=== PATIENT | male | born 1930 | race Caucasian/White ===

== ENCOUNTER 2018-12-27 07:12 | Inpatient (IN) | payer MEDICARE, OTHER ==
[~2018-12-27] VITALS: Ht 185.4 cm; Wt 86.8 kg
[2018-12-27] MEDS ORDERED: ALBUTEROL 0.083% (NEB) 2.5 MG/3 ML AMP HHN STA (07:24)
[2018-12-27] MEDS ORDERED: METF500T3 PO (08:30)
[2018-12-27] MEDS ORDERED: SIMV10TA PO (08:30)
[2018-12-27] MEDS ORDERED: MULT-843 PO (08:30)
[2018-12-27] MEDS ORDERED: LOSA50TA14 PO (08:30)
[2018-12-27] MEDS ORDERED: OMEG-158 PO (08:30)
[2018-12-27] MEDS ORDERED: SITA100T11 PO (08:30)
[2018-12-27] MEDS ORDERED: METO-319 PO (08:30)
[2018-12-27] MEDS ORDERED: ASPI1CPM6 ORAL (08:30)
[2018-12-27] MEDS ORDERED: LATA2.5D2 BOTH EYES (08:30)
[2018-12-27] MEDS ORDERED: GLIP10TA14 PO (08:30)
[2018-12-27] MEDS ORDERED: FINA5TAB4 PO (08:30)
[2018-12-27] MEDS ORDERED: DEXT1DRO12 OP (08:30)
[2018-12-27] MEDS ORDERED: CRAN450C PO (08:30)
--- NOTE | 2018-12-27 09:13 | ERD ---
ER Documentation Chief Complaint Chief Complaint COUGH,SOB X 1 WEEK, WEAKNESS HPI 88-year-old male presents to the emergency department with his family complaining of shortness of breath. Over the last week, the patient has had increasing shortness of breath. He denies any chest pain. He had a cough with no significant sputum production. He reports no fevers, chills, hemoptysis. He became more short of breath today and came to the emergency department for evaluation. ROS All systems reviewed and are negative except as per history of present illness. Medications Home Meds Reported Medications Cranberry Fruit Concentrate (CRANBERRY) 450 Mg Capsule, 450 MG PO DAILY, CAP 12/27/18 [place]-3/Dha/Epa/Fish Oil (FISH OIL 1,000 MG SOFTGEL) 1 Each Capsule, 1 CAP PO DAILY, CAP 12/27/18 Multivits,Ca,Minerals/Iron/FA (Thera M Plus Tablet) 1 Each Tablet, 1 TAB PO DAILY, TAB 12/27/18 Dextran 70/Hypromellose/Pf (Genteal Tears 0.1%-0.3% Drop) 1 Each Droperette, 1 EACH OP BID 12/27/18 Aspirin/Dipyridamole (Aspirin-Dipyridam ER 25-200 mg) 1 Each Cpmp.12hr, 1 CAP ORAL DAILY 12/27/18 Finasteride* (Finasteride*) 5 Mg Tablet, 5 MG PO DAILY, TAB 12/27/18 Metformin Hcl* (Metformin Hcl* ER) 500 Mg Tab.sr.24h, 500 MG PO DAILY, #30 TAB 12/27/18 Losartan Potassium* (Losartan Potassium*) 50 Mg Tablet, 50 MG PO DAILY, TAB 12/27/18 Metoprolol Succinate* (Toprol XL*) 50 Mg Tab.er.24h, 50 MG PO DAILY, #30 TAB 12/27/18 Sitagliptin* (Januvia*) 100 Mg Tablet, 100 MG PO DAILY, #30 TAB 12/27/18 Latanoprost (Latanoprost) 2.5 Ml Drops, 1 DROP BOTH EYES QHS, #1 BOTTLE 12/27/18 Simvastatin* (Zocor*) 10 Mg Tablet, 10 MG PO QHS, #30 TAB 12/27/18 Glipizide* (Glipizide*) 10 Mg Tablet, 10 MG PO AC BREAKFAST, TAB 12/27/18 Allergies Allergies: Coded Allergies: No Known Allergy (Unverified , 12/27/18) PMhx/Soc History of Surgery: No Anesthesia Reaction: No Hx Neurological Disorder: No Hx Respiratory Disorders: No Hx Cardiac Disorders: Yes (HTN) Hx Psychiatric Problems: No Hx Miscellaneous Medical Probl: Yes (DM) Hx Alcohol Use: No Hx Substance Use: No Hx Tobacco Use: No Smoking Status: Never smoker Physical Exam Vitals Vital Signs Date Temp Pulse Resp B/P (MAP) Pulse Ox O2 O2 Flow FiO2 Time Delivery Rate 12/27/18 2.0 08:36 12/27/18 Simple 2 07:49 Mask 12/27/18 100 20 90 21 07:42 12/27/18 98.5 55 18 192/78 93 07:16 (116) Physical Exam GENERAL: The patient is well developed and appropriate for usual state of health in no apparent distress HEENT: Pupils equal, round, and reactive to light. EOMI. There is no scleral icterus. NECK: C-spine is soft and supple, there is no meningismus. There is no cervical lymphadenopathy. LUNGS: Clear to auscultation bilaterally. There are no rales, wheezes or rhonchi. HEART: Irregularly irregular rate and rhythm with no murmurs ABDOMEN: Soft, non-tender, non-distended. There are bowel sounds in all four quadrants. No rebound or guarding. EXTREMITIES: There is no peripheral cyanosis or edema. No focal swelling or erythema. NEURO: The patient moves all four extremities with 5/5 strength. Cranial nerves II - XII are intact. Normal gait. Alert and oriented SKIN: There is no apparent rash or petechiae. HEME/LYMPHATIC: There is no evidence of excessive bruising or lymphedema. PSYCHIATRIC: The patient does not appear anxious or depressed. Result Diagram: 12/27/18 0745 12/27/18 0745 Results 24 hrs Laboratory Tests Test 12/27/18 07:45 12/27/18 07:47 White Blood Count 12.3 10^3/ul Red Blood Count 4.32 10^6/ul Hemoglobin 12.9 g/dl Hematocrit 40.0 % Mean Corpuscular Volume 92.6 fl Mean Corpuscular Hemoglobin 29.9 pg Mean Corpuscular Hemoglobin Concent 32.3 g/dl Red Cell Distribution Width 13.4 % Platelet Count 222 10^3/UL Mean Platelet Volume 11.2 fl Immature Granulocytes % 0.700 % Neutrophils % 83.9 % Lymphocytes % 9.3 % Monocytes % 5.2 % Eosinophils % 0.3 % Basophils % 0.6 % Nucleated Red Blood Cells % 0.0 /100WBC Immature Granulocytes # 0.090 10^3/ul Neutrophils # 10.3 10^3/ul Lymphocytes # 1.1 10^3/ul Monocytes # 0.6 10^3/ul Eosinophils # 0.0 10^3/ul Basophils # 0.1 10^3/ul Nucleated Red Blood Cells # 0.0 10^3/ul Sodium Level 143 mmol/L Potassium Level 4.6 mmol/L Chloride Level 102 mmol/L Carbon Dioxide Level 23 mmol/L Anion Gap 18 Blood Urea Nitrogen 47 mg/dl Creatinine 2.11 mg/dl Est Glomerular Filtrat Rate mL/min mL/min Glucose Level 191 mg/dl Calcium Level 9.5 mg/dl Total Bilirubin 0.3 mg/dl Direct Bilirubin 0.00 mg/dl Indirect Bilirubin 0.3 mg/dl Aspartate Amino Transf (AST/SGOT) 62 IU/L Alanine Aminotransferase (ALT/SGPT) 50 IU/L Alkaline Phosphatase 77 IU/L B-Type Natriuretic Peptide 6800 PG/ML Total Protein 8.3 g/dl Albumin 4.6 g/dl Globulin 3.70 g/dl Albumin/Globulin Ratio 1.24 Lactic Acid Level 1.8 mmol/L Troponin I 0.024 ng/ml Current Medications Medications Dose Sig/Lisa Start Time Status Last (Trade) Ordered Route PRN Stop Time Admin Dose Reason Admin Albuterol 5 mg ONCE STAT 12/27/18 DC 12/27/18 (Proventil HHN 07:24 07:41 0.083% (Neb)) 12/27/18 07:26 Procedures/MDM Patient was taken to a room, seen and evaluated. Comfort measures were initiated. Diagnostic tests were ordered and reviewed. 3 LEAD RHYTHM STRIP: Ventricular bigeminy versus underlying questionable rhythm with multiple PVCs EK lead EKG reviewed by myself: Underlying rhythm is difficult to assess but appears to be possibly in atrial fibrillation. There are multifocal PVCs. Patient has nonspecific inferior changes on the few beats that are seen without ST elevation as well as lateral ST depression Impression: Abnormal EKG concerning for ischemic disease RADIOLOGY: Reviewed with the radiologist CONSULTATION: Hospitalist was notified for admission REEVALUATION: 0910: Tests were appreciated and discussed with the patient. He remained stable and appropriate for inpatient care. MEDICAL DECISION MAKIN-year-old male presents with new onset cough and shortness of breath. Differential diagnosis entertained included asthma, pneumonia, other cardiac and pulmonary concerns. After reviewing the patient's diagnostic tests and clinical presentation, patient appears to have a new onset congestive heart failure with what appears to be a significant underlying dysrhythmia and abnormal EKG concerning for this being cardiac ischemia as the cause of the congestive heart failure. Patient has no evidence of pneumonia and I do not suspect pulmonary embolism. Patient will require admission to the hospital for further cardiac evaluation and I will initiate gentle diuresis Departure Diagnosis: Primary Impression: Heart failure Additional Impression: Renal insufficiency Condition: DELANEY Gannon Dec 27, 2018 09:13
--- NOTE | 2018-12-27 09:22 | HP ---
Date/Time of Note Date/Time of Note DATE: 12/27/18 TIME: 09:22 Assessment/Plan VTE Prophylaxis SCD applied (from Ns): No SCD contraindicated: other Pharmacological prophylaxis: other Pharm contraindication: other (ON AGGRENOX) Lines/Catheters IV Catheter Type (from Nrs): Saline Lock Assessment/Plan Hospital Course SUBJECTIVE: Seen and evaluated patient in ER. Having bilateral lower extremity swelling, brownish productive cough, and mild shortness of breath on exertion. OBJECTIVE: Vital signs-see below PHYSICAL EXAM: Constitutional: Well-developed, adequately built, lying in bed comfortably. Psych: nl mood/affect, no complaints Head: atraumatic, normocephalic Eyes: nl conjunctiva, nl sclera ENMT: mucosa pink and moist, nl external ears & nose Neck: non-tender, supple Respiratory: +Rhonchi RUL,Diminished bibasilar, normal air movement Cardiovascular: nl pulses, regular rate and rhythm Gastrointestinal: non-tender, soft, bowel sounds active in all 4 quadrants. Musculoskeletal/extremities: +3 edema BLE/venous stasis. nl extremities to inspection, motor strength equal bilaterally, no focal deficit. Normal pulses,no cyanosis Neurological: Alert oriented 3,nl speech, nl strength Skin: nl turgor ASSESSMENT/PLAN: 88-year-old male with htn,dm,stroke,ckd,afib,hl here w/CAMPBELL/orthopnea,cough,ble edema, found to have congestive heart failure exacerbation and bronchitis. 1. Congestive heart failure exacerbation, acute -Cardiology consult -2D echo -IV diuresis -Resume beta-blockers 2. Acute bronchitis -We will treat with ceftriaxone/Zithromax. -Obtain cultures 3. SIRS secondary to #2 -Treatment as above. -Follow lactate level 4. Acute kidney injury on chronic kidney disease -Patient was recently started on metformin 2 weeks ago. -At this time, will hold metformin and ARB and will have nephrology evaluation. 5. Essential hypertension -Not optimally controlled on arrival. Resume home medications and will titrate dosage accordingly. 6. Type 2 diabetes -Hold metformin. Will treat with Lantus/sliding scale insulin. -Obtain A1c 7. Chronic atrial fibrillation -Rate controlled -Resume Aggrenox 8. Hyperlipidemia -Resume statin 9. History of strokes -Continue anticoagulation 10. Bilateral lower extremity venous insufficiency -We will obtain a ultrasound to rule out for DVTs. 11. Anemia of CKD -Stable H&H. Continue to monitor DVT prophylaxis: Patient on Aggrenox. Defer further anticoagulation. PUD prophylaxis: PPI CODE STATUS: Full code Carbohydrate controlled/low-cholesterol diet. Rest of the management depend on hospital course. Approximately 60 minutes was spent on this history and physical. Patient was seen in collaboration with Dr. Fernandez. Result Diagram: 12/27/18 0745 12/27/18 0745 Results 24hrs Laboratory Tests Test 12/27/18 07:45 12/27/18 07:47 White Blood Count 12.3 H Red Blood Count 4.32 L Hemoglobin 12.9 L Hematocrit 40.0 L Mean Corpuscular Volume 92.6 Mean Corpuscular Hemoglobin 29.9 Mean Corpuscular Hemoglobin Concent 32.3 Red Cell Distribution Width 13.4 Platelet Count 222 Mean Platelet Volume 11.2 H Immature Granulocytes % 0.700 H Neutrophils % 83.9 H Lymphocytes % 9.3 L Monocytes % 5.2 Eosinophils % 0.3 Basophils % 0.6 Nucleated Red Blood Cells % 0.0 Immature Granulocytes # 0.090 H Neutrophils # 10.3 H Lymphocytes # 1.1 Monocytes # 0.6 Eosinophils # 0.0 Basophils # 0.1 Nucleated Red Blood Cells # 0.0 Sodium Level 143 Potassium Level 4.6 Chloride Level 102 Carbon Dioxide Level 23 Anion Gap 18 H Blood Urea Nitrogen 47 H Creatinine 2.11 H Est Glomerular Filtrat Rate mL/min Glucose Level 191 Calcium Level 9.5 Total Bilirubin 0.3 Direct Bilirubin 0.00 Indirect Bilirubin 0.3 Aspartate Amino Transf (AST/SGOT) 62 H Alanine Aminotransferase (ALT/SGPT) 50 Alkaline Phosphatase 77 B-Type Natriuretic Peptide 6800 H Total Protein 8.3 H Albumin 4.6 Globulin 3.70 H Albumin/Globulin Ratio 1.24 Lactic Acid Level 1.8 Troponin I 0.024 HPI/ROS Admit Date/Time Admit Date/Time Hx of Present Illness 88-year-old male with a history of hypertension, atrial fibrillation, bilateral lower extremity venous insufficiency, CKD, type 2 diabetes, hyperlipidemia, str okes, brought into the emergency room with worsening bilateral lower extremity swelling, dyspnea on exertion, productive cough, wheezing, and generalized malaise times 5 days duration. Patient symptoms got worse last night with orthopnea. Patient denied chest pain, palpitation, nausea, vomiting, d iaphoresis, loss of consciousness, dizziness, numbness, tingling, speech difficulties, vision changes or other constitutional symptoms. In the emergency room, patient was noted with elevated white count 12,300, blood glucose 191, BUN 47, and creatinine 2.11. Patient also had elevated BNP 6800. Patient had a negative urine analysis. Patient's chest x-ray showed pulmonary edema/bibasilar atelectasis, cardiomegaly/atherosclerosis. In ER, patient was given 20 mg IV Lasix. ROS A 12 point review of system was assessed and is negative other than what is mentioned in the HPI. PMH/Family/Social Past Medical History See HPI Coded Allergies: No Known Allergy (Unverified , 12/27/18) Past Surgical History Noncontributory Social History Denied history of alcohol, smoking or illicit drug use Smoking Status: Never smoker Exam/Review of Systems Vital Signs Vitals Vital Signs Date Temp Pulse Resp B/P (MAP) Pulse Ox O2 O2 Flow FiO2 Time Delivery Rate 12/27/18 2.0 08:36 12/27/18 Simple 07:49 Mask 12/27/18 100 20 90 21 07:42 12/27/18 98.5 192/78 07:16 (116) ANTHONY CASE NP Dec 27, 2018 09:22
[2018-12-27] MEDS ORDERED: NACL 0.9% 3 ML SYG IV SCH (09:30)
[2018-12-27] MEDS ORDERED: FUROSEMIDE 20 MG INJ IV ONE ×2 (09:30→12:00)
[2018-12-27] MEDS ORDERED: ACETAMINOPHEN 325 MG TAB PO PRN (09:30)
[2018-12-27] MEDS ORDERED: ONDANSETRON 4 MG INJ IV PRN (09:30)
[2018-12-27] MEDS ORDERED: GLUCOSE GEL 15 GRAM TUBE PO PRN ×2 (11:00)
[2018-12-27] MEDS ORDERED: GLUCOSE GEL 15 GRAM TUBE BUCCAL PRN (11:00)
[2018-12-27] MEDS ORDERED: GLUCAGON 1 MG INJ IM PRN (11:00)
[2018-12-27] MEDS ORDERED: DEXTROSE 50% 50 ML SYRINGE IV PRN ×2 (11:00)
--- NOTE | 2018-12-27 11:06 | CONS ---
Assessment/Plan Assessment/Plan Hospital Course (Demo Recall) Acute diastolic CHF: EF preserved and no prior known diagnosis. No clear trigger except for possible infection and JUAN JOSÉ 192/78 on admission. Decompensated on exam ?Bronchitis vs underlying CAP: productive cough, leukocytosis with left shift. Would treat Pulmonary HTN: PAP 69 mmHg on echo. Likely at least partially from left heart failure Chronic afib: on aggrenox by choice (refused anticoagulation). rates controlled HTN: 192/78 on admission and likely contributing to above CVA x2 without residual CKD:prior baseline Cr 1.5. On admission 2.1. Unclear if new baseline or acute DM HL -lasix 40mg IV BID -losartan 50mg daily (hold if renal function worse) -metoprolol succinate 50mg daily -would start antibiotics as well -simvastatin 10mg -aggrenox Consultation Date/Type/Reason Admit Date/Time Date of Consultation: Dec 27, 2018 Type of Consult Cardiology Reason for Consultation CHF Requesting Provider: ANTHONY CASE NP Date/Time of Note DATE: 12/27/18 TIME: 10:58 Hx of Present Illness 88 yo M known to me from clinic with a h/o chronic afib on aggrenox by choice, HTN, CVA x2 without residual, CKD (prior baseline Cr 1.5), DM, HL, admitted for dyspnea and found to have CHF. His daughter is at bedside as well. She noticed he was having increased leg edema over the past 5 days. Three days ago he started to complain of a cough which was productive of brown sputum. No fevers. Yesterday night he could not sleep due to orthopnea/dyspnea so she brought him in for evaluation. No chest pain. Feels slightly better with oxygen but still has orthopnea. per hPI Past Medical History per hPI Home Meds Reported Medications Cranberry Fruit Concentrate (CRANBERRY) 450 Mg Capsule, 450 MG PO DAILY, CAP 12/27/18 [place]-3/Dha/Epa/Fish Oil (FISH OIL 1,000 MG SOFTGEL) 1 Each Capsule, 1 CAP PO DAILY, CAP 12/27/18 Multivits,Ca,Minerals/Iron/FA (Thera M Plus Tablet) 1 Each Tablet, 1 TAB PO DAILY, TAB 12/27/18 Dextran 70/Hypromellose/Pf (Genteal Tears 0.1%-0.3% Drop) 1 Each Droperette, 1 EACH OP BID 12/27/18 Aspirin/Dipyridamole (Aspirin-Dipyridam ER 25-200 mg) 1 Each Cpmp.12hr, 1 CAP ORAL DAILY 12/27/18 Finasteride* (Finasteride*) 5 Mg Tablet, 5 MG PO DAILY, TAB 12/27/18 Metformin Hcl* (Metformin Hcl* ER) 500 Mg Tab.sr.24h, 500 MG PO DAILY, #30 TAB 12/27/18 Losartan Potassium* (Losartan Potassium*) 50 Mg Tablet, 50 MG PO DAILY, TAB 12/27/18 Metoprolol Succinate* (Toprol XL*) 50 Mg Tab.er.24h, 50 MG PO DAILY, #30 TAB 12/27/18 Sitagliptin* (Januvia*) 100 Mg Tablet, 100 MG PO DAILY, #30 TAB 12/27/18 Latanoprost (Latanoprost) 2.5 Ml Drops, 1 DROP BOTH EYES QHS, #1 BOTTLE 12/27/18 Simvastatin* (Zocor*) 10 Mg Tablet, 10 MG PO QHS, #30 TAB 12/27/18 Glipizide* (Glipizide*) 10 Mg Tablet, 10 MG PO AC BREAKFAST, TAB 12/27/18 Medications Current Medications IV Flush (NS 3 ml) 3 ml PER PROTOCOL IV ; Start 12/27/18 at 09:30 Ondansetron HCl (Zofran Inj) 4 mg Q6H PRN IV NAUSEA/VOMITING; Start 12/27/18 at 09:30 Acetaminophen (Tylenol Tab) 650 mg Q6H PRN PO .PAIN 1-3 OR TEMP; Start 12/27/18 at 09:30 Diagnostic Test (Pha) (Accu-Chek) 1 ea 02 XX ; Start 12/28/18 at 02:00 Insulin Glargine (Lantus) 13 units DAILY@0800 SC ; Start 12/27/18 at 09:30 Insulin Aspart (Novolog Insulin Pen) NOVOLOG *MILD* ALGORITHM WITH MEALS BEDTIME SC ; Start 12/27/18 at 12:00 Dipyridamole/ Aspirin (Aggrenox) 1 cap DAILY PO ; Start 12/28/18 at 09:00; Status UNV Finasteride (Proscar) 5 mg DAILY PO ; Start 12/28/18 at 09:00 Latanoprost (Xalatan) 1 drop QHS BOTH EYES ; Start 12/27/18 at 21:00; Status UNV Metoprolol Succinate (Toprol Xl) 50 mg DAILY PO ; Start 12/28/18 at 09:00 Multivitamins/ Minerals (Theragran-M) 1 tab DAILY PO ; Start 12/28/18 at 09:00 Miscellaneous Information 1 cap DAILY PO ; Start 12/28/18 at 09:00; Status UNV Miscellaneous Information 10 mg QHS PO ; Start 12/27/18 at 21:00; Status UNV Miscellaneous Information 100 mg DAILY PO ; Start 12/28/18 at 09:00; Status UNV Miscellaneous Information 1 ea NOTE XX ; Start 12/27/18 at 11:00 Glucose (Glutose) 15 gm Q15M PRN PO DECREASED GLUCOSE; Start 12/27/18 at 11:00 Glucose (Glutose) 22.5 gm Q15M PRN PO DECREASED GLUCOSE; Start 12/27/18 at 11:00 Dextrose (D50w Syringe) 25 ml Q15M PRN IV DECREASED GLUCOSE; Start 12/27/18 at 11:00 Dextrose (D50w Syringe) 50 ml Q15M PRN IV DECREASED GLUCOSE; Start 12/27/18 at 11:00 Glucagon (Glucagen) 1 mg Q15M PRN IM DECREASED GLUCOSE; Start 12/27/18 at 11:00 Glucose (Glutose) 15 gm Q15M PRN BUCCAL DECREASED GLUCOSE; Start 12/27/18 at 11:00 Allergies: Coded Allergies: No Known Allergy (Unverified , 12/27/18) Social History Smoking Status: Never smoker Exam/Review of Systems Exam Vitals Vital Signs Date Temp Pulse Resp B/P (MAP) Pulse Ox O2 O2 Flow FiO2 Time Delivery Rate 12/27/18 97 18 155/72 98 Nasal 09:28 (99) Cannula 12/27/18 2.0 08:36 12/27/18 21 07:42 12/27/18 98.5 07:16 Constitutional: alert, oriented Psych: nl mood/affect Head: normocephalic, atraumatic Neck: jvd (10cm) Respiratory: crackles/rales; No clear to auscultation (crackles and ronchi ) Cardiovascular: edema (2+), systolic murmur (2/6 DARIA); No regular rate and rhythm (IRIR) Gastrointestinal: soft, non-tender; No distended Neurological: nl mental status, nl speech Results Result Diagram: 12/27/18 0745 12/27/18 0745 Results 24hrs Laboratory Tests Test 12/27/18 07:45 12/27/18 07:47 White Blood Count 12.3 H Red Blood Count 4.32 L Hemoglobin 12.9 L Hematocrit 40.0 L Mean Corpuscular Volume 92.6 Mean Corpuscular Hemoglobin 29.9 Mean Corpuscular Hemoglobin Concent 32.3 Red Cell Distribution Width 13.4 Platelet Count 222 Mean Platelet Volume 11.2 H Immature Granulocytes % 0.700 H Neutrophils % 83.9 H Lymphocytes % 9.3 L Monocytes % 5.2 Eosinophils % 0.3 Basophils % 0.6 Nucleated Red Blood Cells % 0.0 Immature Granulocytes # 0.090 H Neutrophils # 10.3 H Lymphocytes # 1.1 Monocytes # 0.6 Eosinophils # 0.0 Basophils # 0.1 Nucleated Red Blood Cells # 0.0 Sodium Level 143 Potassium Level 4.6 Chloride Level 102 Carbon Dioxide Level 23 Anion Gap 18 H Blood Urea Nitrogen 47 H Creatinine 2.11 H Est Glomerular Filtrat Rate mL/min Glucose Level 191 Calcium Level 9.5 Total Bilirubin 0.3 Direct Bilirubin 0.00 Indirect Bilirubin 0.3 Aspartate Amino Transf (AST/SGOT) 62 H Alanine Aminotransferase (ALT/SGPT) 50 Alkaline Phosphatase 77 B-Type Natriuretic Peptide 6800 H Total Protein 8.3 H Albumin 4.6 Globulin 3.70 H Albumin/Globulin Ratio 1.24 Lactic Acid Level 1.8 Troponin I 0.024 Imaging Imaging afib, PVCs vs aberrant conduction, inferolateral ST/T changes Medications Medication Current Medications IV Flush (NS 3 ml) 3 ml PER PROTOCOL IV ; Start 12/27/18 at 09:30 Ondansetron HCl (Zofran Inj) 4 mg Q6H PRN IV NAUSEA/VOMITING; Start 12/27/18 at 09:30 Acetaminophen (Tylenol Tab) 650 mg Q6H PRN PO .PAIN 1-3 OR TEMP; Start 12/27/18 at 09:30 Diagnostic Test (Pha) (Accu-Chek) 1 ea 02 XX ; Start 12/28/18 at 02:00 Insulin Glargine (Lantus) 13 units DAILY@0800 SC ; Start 12/27/18 at 09:30 Insulin Aspart (Novolog Insulin Pen) NOVOLOG *MILD* ALGORITHM WITH MEALS BEDTIME SC ; Start 12/27/18 at 12:00 Dipyridamole/ Aspirin (Aggrenox) 1 cap DAILY PO ; Start 12/28/18 at 09:00; Status UNV Finasteride (Proscar) 5 mg DAILY PO ; Start 12/28/18 at 09:00 Latanoprost (Xalatan) 1 drop QHS BOTH EYES ; Start 12/27/18 at 21:00; Status UNV Metoprolol Succinate (Toprol Xl) 50 mg DAILY PO ; Start 12/28/18 at 09:00 Multivitamins/ Minerals (Theragran-M) 1 tab DAILY PO ; Start 12/28/18 at 09:00 Miscellaneous Information 1 cap DAILY PO ; Start 12/28/18 at 09:00; Status UNV Miscellaneous Information 10 mg QHS PO ; Start 12/27/18 at 21:00; Status UNV Miscellaneous Information 100 mg DAILY PO ; Start 12/28/18 at 09:00; Status UNV Miscellaneous Information 1 ea NOTE XX ; Start 12/27/18 at 11:00 Glucose (Glutose) 15 gm Q15M PRN PO DECREASED GLUCOSE; Start 12/27/18 at 11:00 Glucose (Glutose) 22.5 gm Q15M PRN PO DECREASED GLUCOSE; Start 12/27/18 at 11:00 Dextrose (D50w Syringe) 25 ml Q15M PRN IV DECREASED GLUCOSE; Start 12/27/18 at 11:00 Dextrose (D50w Syringe) 50 ml Q15M PRN IV DECREASED GLUCOSE; Start 12/27/18 at 11:00 Glucagon (Glucagen) 1 mg Q15M PRN IM DECREASED GLUCOSE; Start 12/27/18 at 11:00 Glucose (Glutose) 15 gm Q15M PRN BUCCAL DECREASED GLUCOSE; Start 12/27/18 at 11:00 EMILIANO WATKINS Dec 27, 2018 11:06
[2018-12-27] MEDS: INSULIN GLARGINE [LANTus] (100 UNITS/ML) SYG SC SCH (11:59)
[2018-12-27] MEDS: INSULIN ASPART [NOVOLOG] 3 ML PEN SC SCH ×3 (12:00→21:59)
[2018-12-27] MEDS: LOSARTAN 50 MG TAB PO SCH (12:04)
[2018-12-27] MEDS: CEFTRIAXONE 1 GM/50 ML (PMX) 50 ML IVPB SCH (14:15)
[2018-12-27] MEDS: AZITHROMYCIN 500 MG TAB PO SCH (15:10)
[2018-12-27 16:32] VITALS: Ht 185.4 cm; Wt 86.8 kg
[2018-12-27 17:13] VITALS: PULSE 105
[2018-12-27] MEDS: FUROSEMIDE 40 MG INJ IV SCH (17:15)
[2018-12-27 18:24] VITALS: BP 136/80; PULSE 54; RESP 18
--- NOTE | 2018-12-27 18:35 | CONS ---
DATE OF ADMISSION: 12/27/2018 DATE OF CONSULTATION: 12/27/2018 TYPE OF CONSULTATION: Nephrology. REASON FOR CONSULTATION: Acute kidney injury. PROVIDER REQUESTING CONSULT: Nimco Guevara NP HISTORY OF PRESENT ILLNESS: This is an 88-year-old male with a past medical history of chronic kidne y disease with previous baseline creatinine around 1.5 mg/dL per patient's family, a history of hyper tension, history of dyslipidemia, who presented to [facility] Emergency Room with complaints of cough and shortness of breath. The patient says over 1 week he has had increasing shortness of b reath with productive sputum. He denied any hemoptysis, hematemesis or hematochezia. Upon arrival t o the emergency room, the patient had a chest x-ray which showed findings of pulmonary edema, bibasil ar atelectasis and cardiomegaly. The patient's laboratory data also showed BUN of 47, creatinine 2.1 1, lactic acid of 2.6. The patient in the emergency room was started on empiric antibiotics and give n diuretics. The patient was seen by escrow closer, Dr. Watkins. In terms of patient's renal history, the patient has had underlying chronic kidney disease with uncle ar etiology possibly due to hypertension and diabetes per patient's family. The patient's baseline c reatinine is around 1.5 mg/dL, has been stable. The patient denies any recent rashes, any hematuria, hemoptysis, hematemesis or hematochezia. PAST MEDICAL HISTORY: History of hypertension, history of diabetes, history of pulmonary hypertensio n, history of chronic AFib, history of CKD, dyslipidemia. PAST SURGICAL HISTORY: Reviewed. FAMILY HISTORY: No family history of kidney disease. SOCIAL HISTORY: Does not drink, smoke or do drugs actively. MEDICATIONS: Have been reviewed. REVIEW OF SYSTEMS: A 14-point review of systems conducted. Pertinent positives stated in HPI, other dahl negative. PHYSICAL EXAMINATION: VITAL SIGNS: Blood pressure is 162/77, respiration 18, pulse 108, temperature 98.6. HEENT: Head is normocephalic. NECK: Supple. HEART: Regular rate. LUNGS: Show diminished breath sounds at the base. ABDOMEN: Soft, nontender to palpation without rebound or guarding. EXTREMITIES: Negative for clubbing, cyanosis. Positive edema. DERMATOLOGIC: No rashes. MUSCULOSKELETAL: No joint effusions. NEUROLOGIC: No focal deficit. LABORATORY DATA: From 12/27/2018 shows white count 12.3, hemoglobin 12.9, platelet count 222. BNP r eviewed. Lactic acid 2.6. ASSESSMENT AND PLAN: This is an 88-year-old male who presents with: 1. Nonoliguric acute kidney injury on top of chronic kidney disease stage III-B with previous baseli ne creatinine of 1.5 mg/dL. Etiology of current acute kidney injury is unclear, possible cardiorenal syndrome, hemodynamics, possible cardiorenal syndrome, hemodynamics, ARB effect. The possibility of an acute glomerulonephritis or vasculitis is less likely given patient's clinical presentation. Tub ular injury is a consideration. Plan at this point is to complete evaluation. We will check a UA wi th microanalysis, check urine electrolytes, calculate a fractional excretion of urea, calculate FENa. We will check a renal ultrasound. We would recommend to continue diuretic therapy. I agree with L asix 40 mg IV b.i.d. Monitor renal function and electrolytes closely. The patient remains on ARB. We will monitor closely. Otherwise, continue supportive care, renally dose all meds, avoid nephrotox ins. 2. Acute decompensated heart failure. Unclear if this is systolic or diastolic. The patient's work up is ongoing. We will follow up 2D echo. Continue diuretic regimen. Rule out acute coronary syndr ome by checking serial troponins. Follow up with escrow closer, Dr. Watkins for recommendations. 3. Anemia. Monitor hemoglobin and hematocrit levels. 4. Mineral bone disorder. Monitor calcium and phosphorus levels. 5. Systemic inflammatory response syndrome, possibly due to bronchitis, questionable pneumonia. The patient is on antibiotic therapy and will continue. 6. Chronic kidney disease. Underlying etiology is unclear, possibly due to diabetes and hypertensio n. The patient is currently in acute kidney injury as stated above. We will continue current medica l management. Otherwise, continue disease factor modification. 7. Hypertension. Blood pressure is markedly elevated in part due to increased intravascular volume. Continue diuretic therapy. Continue current blood pressure regimen. Monitor closely for significa nt hemodynamic fluctuations. 8. Diabetes. Continue current insulin regimen. 9. Dyslipidemia. Continue statin therapy. 10. History of cerebrovascular accident. 11. Chronic atrial fibrillation. Continue current treatment plan. 12. Pulmonary hypertension. Continue medical management. Treat underlying heart failure and monito r closely. Thank you, Nimco, for this interesting consult. It will be a pleasure to follow the patient with you throughout the hospital course. Dictated By: LUIZ PETTY DO NR/LAUREANO Conf#: [id number] DID#: [id number] CC: EMILIANO WATKINS MD; URBANO WRIGHT MD;*EndCC*
[2018-12-27 19:33] VITALS: BP 140/83; PULSE 55; RESP 20
[2018-12-27 20:13] VITALS: PULSE 96
[2018-12-27] MEDS ORDERED: NON-FORMULARY/PATIENT OWN MED (Simvastatin* (Zocor*) 10 MG) PO SCH (21:00)
[2018-12-27] MEDS: ATORVASTATIN 10 MG TAB PO SCH (21:51)
[2018-12-27] MEDS: LATANOPROST 0.005% 2.5 ML OPH BOTH EYES SCH (22:24)
[2018-12-28] VITALS (11 sets, daily range): BP systolic 122–159; BP diastolic 63–96; PULSE 54–125; RESP 18–20
[2018-12-28] MEDS: ACCU-CHEK XX SCH (01:39)
[2018-12-28] MEDS: FUROSEMIDE 40 MG INJ IV SCH (06:13)
[2018-12-28] MEDS: INSULIN ASPART [NOVOLOG] 3 ML PEN SC SCH ×4 (07:47→21:00)
--- NOTE | 2018-12-28 07:55 | RADRPT ---
Echocardiogram Report Patient Name: ABDI HERMANPatient ID: [id number] : [id number] (88y 9m)Study Date: 12/27/2018 10:01:35 AM Gender: MAccession #: [id number] Tech: OR Location: Ref.Physician: RE MILLER Height(Cm): BSA: Weight(Kg): Quality: GoodAccount #: Procedures: Echocardiographic Report: Transthoracic echocardiogram with complete 2D, M-Mode, and doppler examination. Indications: Congestive Heart Failure. Measurements: 2D/M Mode Doppler Measurement Value Normal Range Measurement Value Normal Range LVIDd 2D 5.5 [ 4.2 - 5.8 ] cm AV Peak Jacky 1.4 [ 100.0 - 170.0 ] cm/sec LVIDs 2D 4.1 [ 2.5 - 4.0 ] cm AV Peak PG 8.0 [ 2.0 - 9.0 ] mmHg LVPWd 2D 1.3 [ 0.6 - 1.0 ] cm LVOT Peak Jacky 0.6 [ 70.0 - 110.0 ] cm/sec IVSd 2D 1.3 [ 0.6 - 1.0 ] cm LVOT Peak PG 2.0 [ 2.0 - 6.0 ] mmHg IVS/LVPW 2D 1.0 ratio MV E Peak Jacky 1.5 [ 60.0 - 130.0 ] cm/sec AoR Diam 2D 3.4 [ 2.6 - 3.4 ] cm MV Decel Time 246 [ 104 - 258 ] msec LA/Ao 2D 1 ratio Lat E` Jacky 0.1 [ 10.0 - 15.0 ] cm/sec LA Dimen 2D 4.5 [ 3.0 - 4.0 ] cm TR Peak Jacky 3.5 [ 100.0 - 280.0 ] cm/sec TR Peak PG 50.0 mmHg Findings: Left Ventricle: Normal left ventricular systolic function. Normal left ventricular cavity size. Mild concentric left ventricular hypertrophy. Ejection fraction is visually estimated at 60 %. Right Ventricle: Normal right ventricular size. Normal right ventricular systolic function. Left Atrium: There is moderate enlargement of left atrium. Right Atrium: There is mild enlargement of right atrium. Mitral Valve: Mild mitral annular calcification. Mild mitral valve regurgitation. Aortic Valve: Aortic sclerosis without significant stenosis. No aortic regurgitation. Tricuspid Valve: Normal appearance of the tricuspid valve. Estimated peak PA systolic pressure 69 mmHg. There is mild tricuspid regurgitation. Pulmonic Valve: Pulmonic valve not well visualized. Pericardium: Normal pericardium with no significant pericardial effusion. Aorta: Normal aortic root. IVC: Dilated IVC without respiratory collapse consistent with elevated right atrial pressure. Conclusions: Normal left ventricular systolic function. Normal left ventricular cavity size. Mild concentric left ventricular hypertrophy. Ejection fraction is visually estimated at 60 %. Aortic sclerosis without significant stenosis. No aortic regurgitation. Moderate to severe pulmonary hypertension with estimated peak PA systolic pressure 69 mmHg. Dilated IVC without respiratory collapse consistent with elevated right atrial pressure (15 mmHg). Electronically Signed By: Thompson Soliz 2018-12-27 10:28:14 PDT
[2018-12-28] MEDS ORDERED: NON-FORMULARY/PATIENT OWN MED (Omega-3/Dha/Epa/Fish Oil (Fish Oil 1,000 Mg Softgel) 1 CAP) PO SCH (09:00)
[2018-12-28] MEDS ORDERED: NON-FORMULARY/PATIENT OWN MED (Sitagliptin* (Januvia*) 100 MG) PO SCH (09:00)
[2018-12-28] MEDS: FISH OIL 1,000 MG CAP PO SCH (09:14)
[2018-12-28] MEDS: FINASTERIDE 5 MG TAB PO SCH (09:14)
[2018-12-28] MEDS: METOPROLOL (XL) 50 MG TAB PO SCH (09:16)
[2018-12-28] MEDS: LINAGLIPTIN 5 MG TABLET PO SCH (09:16)
[2018-12-28] MEDS: LOSARTAN 50 MG TAB PO SCH (09:17)
--- NOTE | 2018-12-28 09:25 | CONS ---
Assessment/Plan Assessment/Plan Hospital Course (Demo Recall) Acute diastolic CHF: EF preserved and no prior known diagnosis. No clear trigger except for possible infection and BP 192/78 on admission. Improved after diuresis and intravascularly close to euvolemic ?Bronchitis vs underlying CAP: productive cough, leukocytosis with left shift. On antibiotics Pulmonary HTN: PAP 69 mmHg on echo. Likely at least partially from left heart failure Chronic afib: on aggrenox by choice (refused anticoagulation). rates controlled HTN: 192/78 on admission and likely contributing to above. 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 On admission 2.1. Now 1.7 DM HL -hold further lasix today. Already received one dose in am. Assess tomorrow -losartan 50mg daily -metoprolol succinate 50mg daily -simvastatin 10mg -aggrenox Consultation Date/Type/Reason Admit Date/Time Dec 27, 2018 at 09:13 Initial Consult Date 12/27/18 Type of Consult Cardiology Requesting Provider: ANTHONY CASE NP Date/Time of Note DATE: 12/28/18 TIME: 09:23 24 HR Interval Summary Free Text/Dictation Doing much better.Still coughing Urinating frequently but no I/Os recorded., Cr down to 1.7. Exam/Review of Systems Exam Vitals Vital Signs Date Temp Pulse Resp B/P (MAP) Pulse Ox O2 O2 Flow FiO2 Time Delivery Rate 12/28/18 125 08:32 12/28/18 97.7 19 149/96 97 07:18 (113) 12/28/18 Nasal 3.0 03:47 Cannula 12/27/18 21 07:42 Intake and Output 12/27/18 12/27/18 12/28/18 1414:59 22:59 06:59 IntakeIntake Total 240 ml 400 ml BalanceBalance 240 ml 400 ml Constitutional: alert, oriented Psych: no complaints, nl mood/affect Head: normocephalic, atraumatic Neck: jvd (8cm) Respiratory: crackles/rales; No clear to auscultation (ronchi ) Cardiovascular: regular rate and rhythm, edema (1+ ankles ), systolic murmur Gastrointestinal: soft, non-tender, distended Neurological: nl mental status, nl speech Results Result Diagram: 12/28/18 0647 12/28/18 0647 Results 24hrs Laboratory Tests Test 12/27/18 11:57 12/27/18 13:23 12/27/18 14:23 12/27/18 17:10 Bedside Glucose 172 174 Lactic Acid Level 2.6 *H Urine Color STRAW Urine Clarity CLEAR Urine pH 5.0 Urine Specific 1.008 [place] Urine Ketones NEGATIVE Urine Nitrite NEGATIVE Urine Bilirubin NEGATIVE Urine Urobilinogen NEGATIVE Urine Leukocyte NEGATIVE Esterase Urine Microscopic 2 RBC Urine Microscopic 0 WBC Urine Bacteria FEW A Urine Hemoglobin 1+ H Urine Random 26.65 Creatinine Urine Random Sodium 110 H Urine Glucose NEGATIVE Urine Total Protein 36.0 H Test 12/27/18 21:50 12/28/18 01:31 12/28/18 06:47 12/28/18 07:35 Bedside Glucose 193 163 145 White Blood Count 12.2 H Red Blood Count 4.31 L Hemoglobin 12.7 L Hematocrit 39.0 L Mean Corpuscular 90.5 Volume Mean Corpuscular 29.5 Hemoglobin Mean Corpuscular 32.6 Hemoglobin Concent Red Cell 13.6 Distribution Width Platelet Count 221 Mean Platelet Volume 11.2 H Immature 0.700 H Granulocytes % Neutrophils % 72.5 Lymphocytes % 17.0 Monocytes % 8.6 Eosinophils % 0.7 Basophils % 0.5 Nucleated Red Blood 0.0 Cells % Immature 0.080 H Granulocytes # Neutrophils # 8.8 H Lymphocytes # 2.1 Monocytes # 1.1 H Eosinophils # 0.1 Basophils # 0.1 Nucleated Red Blood 0.0 Cells # Sodium Level 144 Potassium Level 3.8 Chloride Level 99 Carbon Dioxide Level 30 Anion Gap 15 H Blood Urea Nitrogen 47 H Creatinine 1.77 H Est Glomerular Filtrat Rate mL/min Glucose Level 150 Hemoglobin A1c 7.1 H Calcium Level 9.8 Phosphorus Level 3.6 Magnesium Level 2.0 Total Bilirubin 0.5 Direct Bilirubin 0.00 Indirect Bilirubin 0.5 Aspartate Amino 37 Transf (AST/SGOT) Alanine 46 Aminotransferase (AL T/SGPT) Alkaline Phosphatase 64 Total Protein 8.0 Albumin 4.4 Globulin 3.60 H Albumin/Globulin 1.22 Ratio Triglycerides Level 150 H Cholesterol Level 119 LDL Cholesterol, 64 Calculated HDL Cholesterol 25 L Cholesterol/HDL 4.7 Ratio Thyroid Stimulating 1.650 Hormone (TSH) Medications Medication Current Medications IV Flush (NS 3 ml) 3 ml PER PROTOCOL IV ; Start 12/27/18 at 09:30 Ondansetron HCl (Zofran Inj) 4 mg Q6H PRN IV NAUSEA/VOMITING; Start 12/27/18 at 09:30 Acetaminophen (Tylenol Tab) 650 mg Q6H PRN PO .PAIN 1-3 OR TEMP; Start 12/27/18 at 09:30 Diagnostic Test (Pha) (Accu-Chek) 1 ea 02 XX Last administered on 12/28/18at 01:39; Admin Dose 1 EA; Start 12/28/18 at 02:00 Insulin Glargine (Lantus) 13 units DAILY@0800 SC Last administered on 12/27/18at 11:59; Admin Dose 13 UNITS; Start 12/27/18 at 09:30 Insulin Aspart (Novolog Insulin Pen) NOVOLOG *MILD* ALGORITHM WITH MEALS BEDTIME SC Last administered on 12/28/18at 07:47; Admin Dose 1 UNIT; Start 12/27/18 at 12:00 Dipyridamole/ Aspirin (Aggrenox) 1 cap DAILY PO ; Start 12/28/18 at 09:00 Finasteride (Proscar) 5 mg DAILY PO Last administered on 12/28/18at 09:14; Admin Dose 5 MG; Start 12/28/18 at 09:00 Latanoprost (Xalatan) 1 drop QHS BOTH EYES Last administered on 12/27/18at 22:24; Admin Dose 1 DROP; Start 12/27/18 at 21:00 Metoprolol Succinate (Toprol Xl) 50 mg DAILY PO Last administered on 12/28/18at 09:16; Admin Dose 50 MG; Start 12/28/18 at 09:00 Multivitamins/ Minerals (Theragran-M) 1 tab DAILY PO ; Start 12/28/18 at 09:00 Miscellaneous Information 1 ea NOTE XX ; Start 12/27/18 at 11:00 Glucose (Glutose) 15 gm Q15M PRN PO DECREASED GLUCOSE; Start 12/27/18 at 11:00 Glucose (Glutose) 22.5 gm Q15M PRN PO DECREASED GLUCOSE; Start 12/27/18 at 11:00 Dextrose (D50w Syringe) 25 ml Q15M PRN IV DECREASED GLUCOSE; Start 12/27/18 at 11:00 Dextrose (D50w Syringe) 50 ml Q15M PRN IV DECREASED GLUCOSE; Start 12/27/18 at 11:00 Glucagon (Glucagen) 1 mg Q15M PRN IM DECREASED GLUCOSE; Start 12/27/18 at 11:00 Glucose (Glutose) 15 gm Q15M PRN BUCCAL DECREASED GLUCOSE; Start 12/27/18 at 11:00 Furosemide (Lasix) 40 mg BID DIURETICS IV Last administered on 12/28/18at 06:13; Admin Dose 40 MG; Start 12/27/18 at 18:00 Losartan Potassium (Cozaar) 50 mg DAILY PO Last administered on 12/28/18at 09:17; Admin Dose 50 MG; Start 12/27/18 at 12:00 Ceftriaxone Sodium 50 ml @ 100 mls/hr Q24H IVPB Last administered on 12/27/18at 14:15; Admin Dose 100 MLS/HR; Start 12/27/18 at 14:00 Guaifenesin/ Dextromethorphan (Robitussin Dm Liquid Cup) 10 ml Q4H PRN PO cough; Start 12/27/18 at 14:00 Azithromycin (Zithromax) 500 mg DAILY PO Last administered on 12/27/18at 15:10; Admin Dose 500 MG; Start 12/27/18 at 15:00 Atorvastatin Calcium (Lipitor) 10 mg DAILY@21 PO Last administered on 12/27/18at 21:51; Admin Dose 10 MG; Start 12/27/18 at 21:00 Linagliptin (Tradjenta) 5 mg DAILY PO Last administered on 12/28/18 09:16; Admin Dose 5 MG; Start 12/28/18 at 09:00 Fish Oil (Fish Oil) 1,000 mg DAILY PO Last administered on 12/28/18 09:14; Admin Dose 1,000 MG; Start 12/28/18 at 09:00 EMILIANO WATKINS Dec 28, 2018 09:25
[2018-12-28] MEDS: DIPYRIDAMOLE/ASPIRIN (SR) CAP PO SCH (09:46)
[2018-12-28] MEDS: AZITHROMYCIN 500 MG TAB PO SCH (09:46)
[2018-12-28] MEDS: MULTIVITAMINS/MINERALS TAB PO SCH (09:46)
[2018-12-28] MEDS: GUAIFENESIN/DM 5ML CUP PO PRN ×2 (09:48→19:02)
[2018-12-28] MEDS: INSULIN GLARGINE [LANTus] (100 UNITS/ML) SYG SC SCH (09:54)
--- NOTE | 2018-12-28 11:01 | PN ---
DATE: 12/27/2018 SUBJECTIVE: The patient is less short of breath. No fevers, no chills, no nausea or vomiting. OBJECTIVE: VITAL SIGNS: Blood pressure is 149/96, respiration 19, pulse 57, temperature 97.6. HEENT: Head is normocephalic. NECK: Supple. HEART: Regular rate. LUNGS: Show diminished breath sounds at base. ABDOMEN: Soft, nontender to palpation without rebound or guarding. EXTREMITIES: Negative for clubbing, cyanosis, no edema. DERMATOLOGIC: No rashes. MUSCULOSKELETAL: No joint effusion. NEUROLOGIC: No change in exam. MEDICATIONS: Reviewed. LABORATORY DATA: Shows sodium 144, creatinine 3.8, BUN 47, creatinine 1.77. White count 12.2, hemog lobin 12.7, platelet count is 221. ASSESSMENT AND PLAN: 1. Nonoliguric acute kidney injury on top of chronic kidney disease stage 3B with previous baseline creatinine of 1.5 mg/dL. Etiology of acute kidney injury is likely secondary to hemodynamics, possib le cardiorenal syndrome. The patient's renal function has improved with diuretic therapy. At this p oint, would continue current treatment plan, will deescalate diuretic therapy. The patient appears n ear euvolemic status. Otherwise, continue supportive care, renally dose all meds, avoid nephrotoxins . 2. Acute decompensated heart failure. The patient is clinically improved. Cardiology is following. Diuretics were adjusted. Continue to monitor. 3. Anemia. Monitor hemoglobin and hematocrit levels. 4. Mineral bone disorder. Monitor calcium and phosphorus levels. 5. Systemic inflammatory response syndrome. Possibly due to bronchitis, questionable pneumonia. Co ntinue current antibiotic regimen. 6. Chronic kidney disease, etiology is likely due to diabetes, hypertension. The patient currently in acute kidney injury as stated above. Continue medical management. Otherwise, continue disease fa ctor modification. 7. Hypertension. Continue current blood pressure regimen. Continue diuretic therapy. 8. Diabetes. Continue current insulin regimen. 9. Dyslipidemia. Continue statin therapy. 10. History of cerebrovascular accident. Continue current treatment. Dictated By: LUIZ PETTY DO NR/NTS Conf#: [id number] DID#: [id number] CC: URBANO WRIGHT MD;*EndCC*
--- NOTE | 2018-12-28 14:22 | PN ---
Date/Time of Note Date/Time of Note DATE: 12/28/18 TIME: 14:17 Assessment/Plan VTE Prophylaxis Risk score (from Ns)>0 risk: 7 SCD applied (from Ns): Yes Pharmacological prophylaxis: NA/contraindicated Pharm contraindication: other (aggrenox) Lines/Catheters IV [facility] Type (from [facility]): Peripheral IV Urinary Cath still in place: No Assessment/Plan Hospital Course SUBJECTIVE: Overall doing well. OBJECTIVE: Vital signs-see below PHYSICAL EXAM: Constitutional: Well-developed, adequately built, lying in bed comfortably. Psych: nl mood/affect, no complaints Head: atraumatic, normocephalic Eyes: nl conjunctiva, nl sclera ENMT: mucosa pink and moist, nl external ears & nose Neck: non-tender, supple Respiratory: +Rhonchi RUL,Diminished bibasilar, normal air movement Cardiovascular: nl pulses, regular rate and rhythm Gastrointestinal: non-tender, soft, bowel sounds active in all 4 quadrants. Musculoskeletal/extremities: +3 edema BLE/venous stasis. nl extremities to inspection, motor strength equal bilaterally, no focal deficit. Normal pulses,no cyanosis Neurological: Alert oriented 3,nl speech, nl strength Skin: nl turgor ASSESSMENT/PLAN: 88-year-old male with htn,dm,stroke,ckd,afib,hl here w/CAMPBELL/orthopnea,cough,ble edema, found to have congestive heart failure exacerbation and bronchitis. 1. Acute diastolic congestive heart failure. -Clinically improving. Start ejection fraction. -status post IV diuretics. -cont. beta-blockers 2. Acute bronchitis -Improving -cont ceftriaxone/Zithromax 3. Acute kidney injury on chronic kidney disease -Renal function improving. Follow-up nephrology recommendations. -Avoid nephrotoxins 4. Essential hypertension -Stable. Continue antihypertensives 5. Type 2 diabetes -Hold metformin. cont with Lantus/sliding scale insulin. -Diabetic education. In light of renal insufficiency, he would most likely need to be on insulin. 6. Chronic atrial fibrillation -on Aggrenox 8. Hyperlipidemia -on statin 9. History of strokes -Continue anticoagulation 10. Anemia of CKD -Stable H&H. Continue to monitor 11. Bilateral lower extremity venous insufficiency. -stable -us to r/o dvt DVT prophylaxis: Patient on Aggrenox. PUD prophylaxis: PPI CODE STATUS: Full code Carbohydrate controlled/low-cholesterol diet. Disposition: Continue current management ,await for clinical improvement. Reassess in a.m. Patient was seen in collaboration with Dr. Fernandez. Result Diagram: 12/28/18 0647 12/28/18 0647 Results 24hrs Laboratory Tests Test 12/27/18 14:23 12/27/18 17:10 12/27/18 21:50 12/28/18 01:31 Urine Color STRAW Urine Clarity CLEAR Urine pH 5.0 Urine Specific 1.008 [place] Urine Ketones NEGATIVE Urine Nitrite NEGATIVE Urine Bilirubin NEGATIVE Urine Urobilinogen NEGATIVE Urine Leukocyte NEGATIVE Esterase Urine Microscopic 2 RBC Urine Microscopic 0 WBC Urine Bacteria FEW A Urine Hemoglobin 1+ H Urine Random 29 Creatinine Urine Random Sodium 110 H Urine Microalbumin 18.3 Urine 631 H Microalbumin/Creatin ine Ratio Urine Glucose NEGATIVE Urine Total Protein 36.0 H Bedside Glucose 174 193 163 Test 12/28/18 06:47 12/28/18 07:35 12/28/18 11:40 White Blood Count 12.2 H Red Blood Count 4.31 L Hemoglobin 12.7 L Hematocrit 39.0 L Mean Corpuscular 90.5 Volume Mean Corpuscular 29.5 Hemoglobin Mean Corpuscular 32.6 Hemoglobin Concent Red Cell 13.6 Distribution Width Platelet Count 221 Mean Platelet Volume 11.2 H Immature 0.700 H Granulocytes % Neutrophils % 72.5 Lymphocytes % 17.0 Monocytes % 8.6 Eosinophils % 0.7 Basophils % 0.5 Nucleated Red Blood 0.0 Cells % Immature 0.080 H Granulocytes # Neutrophils # 8.8 H Lymphocytes # 2.1 Monocytes # 1.1 H Eosinophils # 0.1 Basophils # 0.1 Nucleated Red Blood 0.0 Cells # Sodium Level 144 Potassium Level 3.8 Chloride Level 99 Carbon Dioxide Level 30 Anion Gap 15 H Blood Urea Nitrogen 47 H Creatinine 1.77 H Est Glomerular Filtrat Rate mL/min Glucose Level 150 Hemoglobin A1c 7.1 H Calcium Level 9.8 Phosphorus Level 3.6 Magnesium Level 2.0 Total Bilirubin 0.5 Direct Bilirubin 0.00 Indirect Bilirubin 0.5 Aspartate Amino 37 Transf (AST/SGOT) Alanine 46 Aminotransferase (AL T/SGPT) Alkaline Phosphatase 64 Total Protein 8.0 Albumin 4.4 Globulin 3.60 H Albumin/Globulin 1.22 Ratio Triglycerides Level 150 H Cholesterol Level 119 LDL Cholesterol, 64 Calculated HDL Cholesterol 25 L Cholesterol/HDL 4.7 Ratio Thyroid Stimulating 1.650 Hormone (TSH) Bedside Glucose 145 260 H Exam/Review of Systems Exam Vitals Vital Signs Date Temp Pulse Resp B/P (MAP) Pulse Ox O2 O2 Flow FiO2 Time Delivery Rate 12/28/18 114 12:27 12/28/18 97.7 19 124/63 97 11:17 (83) 12/28/18 Nasal 3.0 08:00 Cannula 12/27/18 21 07:42 Intake and Output 12/27/18 12/27/18 12/28/18 1515:00 23:00 07:00 IntakeIntake Total 240 ml 400 ml BalanceBalance 240 ml 400 ml Results Results 24hrs Laboratory Tests Test 12/27/18 14:23 12/27/18 17:10 12/27/18 21:50 12/28/18 01:31 Urine Color STRAW Urine Clarity CLEAR Urine pH 5.0 Urine Specific 1.008 [place] Urine Ketones NEGATIVE Urine Nitrite NEGATIVE Urine Bilirubin NEGATIVE Urine Urobilinogen NEGATIVE Urine Leukocyte NEGATIVE Esterase Urine Microscopic 2 RBC Urine Microscopic 0 WBC Urine Bacteria FEW A Urine Hemoglobin 1+ H Urine Random 29 Creatinine Urine Random Sodium 110 H Urine Microalbumin 18.3 Urine 631 H Microalbumin/Creatin ine Ratio Urine Glucose NEGATIVE Urine Total Protein 36.0 H Bedside Glucose 174 193 163 Test 12/28/18 06:47 12/28/18 07:35 12/28/18 11:40 White Blood Count 12.2 H Red Blood Count 4.31 L Hemoglobin 12.7 L Hematocrit 39.0 L Mean Corpuscular 90.5 Volume Mean Corpuscular 29.5 Hemoglobin Mean Corpuscular 32.6 Hemoglobin Concent Red Cell 13.6 Distribution Width Platelet Count 221 Mean Platelet Volume 11.2 H Immature 0.700 H Granulocytes % Neutrophils % 72.5 Lymphocytes % 17.0 Monocytes % 8.6 Eosinophils % 0.7 Basophils % 0.5 Nucleated Red Blood 0.0 Cells % Immature 0.080 H Granulocytes # Neutrophils # 8.8 H Lymphocytes # 2.1 Monocytes # 1.1 H Eosinophils # 0.1 Basophils # 0.1 Nucleated Red Blood 0.0 Cells # Sodium Level 144 Potassium Level 3.8 Chloride Level 99 Carbon Dioxide Level 30 Anion Gap 15 H Blood Urea Nitrogen 47 H Creatinine 1.77 H Est Glomerular Filtrat Rate mL/min Glucose Level 150 Hemoglobin A1c 7.1 H Calcium Level 9.8 Phosphorus Level 3.6 Magnesium Level 2.0 Total Bilirubin 0.5 Direct Bilirubin 0.00 Indirect Bilirubin 0.5 Aspartate Amino 37 Transf (AST/SGOT) Alanine 46 Aminotransferase (AL T/SGPT) Alkaline Phosphatase 64 Total Protein 8.0 Albumin 4.4 Globulin 3.60 H Albumin/Globulin 1.22 Ratio Triglycerides Level 150 H Cholesterol Level 119 LDL Cholesterol, 64 Calculated HDL Cholesterol 25 L Cholesterol/HDL 4.7 Ratio Thyroid Stimulating 1.650 Hormone (TSH) Bedside Glucose 145 260 H Medications Medication Current Medications IV Flush (NS 3 ml) 3 ml PER PROTOCOL IV ; Start 12/27/18 at 09:30 Ondansetron HCl (Zofran Inj) 4 mg Q6H PRN IV NAUSEA/VOMITING; Start 12/27/18 at 09:30 Acetaminophen (Tylenol Tab) 650 mg Q6H PRN PO .PAIN 1-3 OR TEMP; Start 12/27/18 at 09:30 Diagnostic Test (Pha) (Accu-Chek) 1 ea 02 XX Last administered on 12/28/18 01:39; Admin Dose 1 EA; Start 12/28/18 at 02:00 Insulin Glargine (Lantus) 13 units DAILY@0800 SC Last administered on 12/28/18 09:54; Admin Dose 13 UNITS; Start 12/27/18 at 09:30 Insulin Aspart (Novolog Insulin Pen) NOVOLOG *MILD* ALGORITHM WITH MEALS BEDTIME SC Last administered on 12/28/18 12:03; Admin Dose 3 UNIT; Start 12/27/18 at 12:00 Dipyridamole/ Aspirin (Aggrenox) 1 cap DAILY PO Last administered on 12/28/18 09:46; Admin Dose 1 CAP; Start 12/28/18 at 09:00 Finasteride (Proscar) 5 mg DAILY PO Last administered on 12/28/18 09:14; Admin Dose 5 MG; Start 12/28/18 at 09:00 Latanoprost (Xalatan) 1 drop QHS BOTH EYES Last administered on 12/27/18 22:24; Admin Dose 1 DROP; Start 12/27/18 at 21:00 Metoprolol Succinate (Toprol Xl) 50 mg DAILY PO Last administered on 12/28/18 09:16; Admin Dose 50 MG; Start 12/28/18 at 09:00 Multivitamins/ Minerals (Theragran-M) 1 tab DAILY PO Last administered on 12/28/18at 09:46; Admin Dose 1 TAB; Start 12/28/18 at 09:00 Miscellaneous Information 1 ea NOTE XX ; Start 12/27/18 at 11:00 Glucose (Glutose) 15 gm Q15M PRN PO DECREASED GLUCOSE; Start 12/27/18 at 11:00 Glucose (Glutose) 22.5 gm Q15M PRN PO DECREASED GLUCOSE; Start 12/27/18 at 11:00 Dextrose (D50w Syringe) 25 ml Q15M PRN IV DECREASED GLUCOSE; Start 12/27/18 at 11:00 Dextrose (D50w Syringe) 50 ml Q15M PRN IV DECREASED GLUCOSE; Start 12/27/18 at 11:00 Glucagon (Glucagen) 1 mg Q15M PRN IM DECREASED GLUCOSE; Start 12/27/18 at 11:00 Glucose (Glutose) 15 gm Q15M PRN BUCCAL DECREASED GLUCOSE; Start 12/27/18 at 11:00 Losartan Potassium (Cozaar) 50 mg DAILY PO Last administered on 12/28/18at 09:17; Admin Dose 50 MG; Start 12/27/18 at 12:00 Ceftriaxone Sodium 50 ml @ 100 mls/hr Q24H IVPB Last administered on 12/27/18at 14:15; Admin Dose 100 MLS/HR; Start 12/27/18 at 14:00 Guaifenesin/ Dextromethorphan (Robitussin Dm Liquid Cup) 10 ml Q4H PRN PO cough Last administered on 12/28/18at 09:48; Admin Dose 10 ML; Start 12/27/18 at 14:00 Azithromycin (Zithromax) 500 mg DAILY PO Last administered on 12/28/18 09:46; Admin Dose 500 MG; Start 12/27/18 at 15:00 Atorvastatin Calcium (Lipitor) 10 mg DAILY@21 PO Last administered on 12/27/18at 21:51; Admin Dose 10 MG; Start 12/27/18 at 21:00 Linagliptin (Tradjenta) 5 mg DAILY PO Last administered on 12/28/18at 09:16; Admin Dose 5 MG; Start 12/28/18 at 09:00 Fish Oil (Fish Oil) 1,000 mg DAILY PO Last administered on 12/28/18at 09:14; Admin Dose 1,000 MG; Start 12/28/18 at 09:00 ANTHONY CASE NP Dec 28, 2018 14:22
[2018-12-28] MEDS ORDERED: INSULIN GLARGINE [LANTus] (100 UNITS/ML) SYG SC ONE (14:30)
[2018-12-28] MEDS: CEFTRIAXONE 1 GM/50 ML (PMX) 50 ML IVPB SCH (16:18)
[2018-12-28] MEDS ORDERED: INSULIN GLARGINE [LANTus] (100 UNITS/ML) SYG SC SCH (18:17)
[2018-12-28] MEDS: ATORVASTATIN 10 MG TAB PO SCH (21:26)
[2018-12-28] MEDS: LATANOPROST 0.005% 2.5 ML OPH BOTH EYES SCH (21:26)
[2018-12-29] VITALS (11 sets, daily range): BP systolic 125–176; BP diastolic 60–75; PULSE 50–101; RESP 19–20
[2018-12-29] MEDS: ACCU-CHEK XX SCH (02:00)
[2018-12-29] MEDS: INSULIN ASPART [NOVOLOG] 3 ML PEN SC SCH ×4 (07:55→21:05)
[2018-12-29] MEDS: MULTIVITAMINS/MINERALS TAB PO SCH (08:23)
[2018-12-29] MEDS: FISH OIL 1,000 MG CAP PO SCH (08:23)
[2018-12-29] MEDS: AZITHROMYCIN 500 MG TAB PO SCH (08:23)
[2018-12-29] MEDS: LOSARTAN 50 MG TAB PO SCH (08:24)
[2018-12-29] MEDS: FINASTERIDE 5 MG TAB PO SCH (08:24)
[2018-12-29] MEDS: LINAGLIPTIN 5 MG TABLET PO SCH (08:24)
[2018-12-29] MEDS: METOPROLOL (XL) 50 MG TAB PO SCH (08:24)
[2018-12-29] MEDS: DIPYRIDAMOLE/ASPIRIN (SR) CAP PO SCH (08:25)
[2018-12-29] MEDS: INSULIN GLARGINE [LANTus] (100 UNITS/ML) SYG SC SCH (09:25)
--- NOTE | 2018-12-29 09:35 | PN ---
DATE: 12/29/2018 SUBJECTIVE: The patient is clinically improving. No acute events overnight. No fevers, chills, ace sea, vomiting. OBJECTIVE: VITAL SIGNS: Blood pressure is 145/63, respirations 19, pulse 84, temperature 97.6. HEENT: Head is normocephalic. NECK: Supple. HEART: Regular rate. LUNGS: Show diminished breath sounds at the base. ABDOMEN: Soft, nontender to palpation without rebound or guarding. EXTREMITIES: Negative for clubbing, cyanosis, no edema. DERMATOLOGIC: No rashes. MUSCULOSKELETAL: No joint effusion. NEUROLOGIC: No change in exam. MEDICATIONS: The patient's medications have been reviewed. LABORATORY DATA: From 12/29/2018 is currently pending. ASSESSMENT AND PLAN: 1. Nonoliguric acute kidney injury on top of chronic kidney disease stage IIIb with previous baselin e creatinine of 1.5 mg/dL. Etiology of acute kidney injury is secondary to hemodynamics, possible ca rdiorenal syndrome. The patient's renal function has improved initially with diuretic therapy. At t his point, continue current treatment plans, supportive care, renally dose all medicines and follow u p renal panel. The patient appears near euvolemic status and monitor closely. 2. Acute decompensated heart failure. The patient is clinically improving. Continue medical manage ment. Diuretics is being adjusted by Cardiology. 3. Anemia. Monitor hemoglobin and hematocrit levels. 4. Mineral bone disorder. Monitor calcium and phosphorus levels. 5. Systemic inflammatory response syndrome possible bronchitis. Continue current antibiotic regimen . 6. Chronic kidney disease, etiology is secondary to diabetes, hypertension. The patient is currentl y in acute kidney injury as stated above. Continue medical management. Continue disease factor john fication. 7. Hypertension. Continue current blood pressure regimen. 8. Diabetes. Continue current insulin regimen. 9. Dyslipidemia. Continue statin therapy. 10. History of cerebrovascular accident. Continue medical management. Dictated By: LUIZ PETTY DO NR/NTS Conf#: [id number] DID#: [id number] CC: EMILIANO WATKINS MD; URBANO WRIGHT MD;*EndCC*
--- NOTE | 2018-12-29 11:20 | PN ---
Date/Time of Note Date/Time of Note DATE: 12/29/18 TIME: 11:16 Assessment/Plan VTE Prophylaxis Risk score (from Ns)>0 risk: 5 SCD applied (from Ns): No SCD contraindicated: other Pharmacological prophylaxis: NA/contraindicated Pharm contraindication: low risk/ambulating, other (aggrenox) Lines/Catheters IV Catheter Type (from [facility]): [place] Urinary Cath still in place: No Assessment/Plan Hospital Course SUBJECTIVE: Overall doing well. OBJECTIVE: Vital signs-see below PHYSICAL EXAM: Constitutional: Well-developed, adequately built, lying in bed comfortably. Psych: nl mood/affect, no complaints Head: atraumatic, normocephalic Eyes: nl conjunctiva, nl sclera ENMT: mucosa pink and moist, nl external ears & nose Neck: non-tender, supple Respiratory: +Rhonchi RUL,Diminished bibasilar, normal air movement Cardiovascular: nl pulses, regular rate and rhythm Gastrointestinal: non-tender, soft, bowel sounds active in all 4 quadrants. Musculoskeletal/extremities: +2 edema BLE/venous stasis-improved. nl extremities to inspection, motor strength equal bilaterally, no focal deficit. Normal pulses,no cyanosis Neurological: Alert oriented 3,nl speech, nl strength Skin: nl turgor ASSESSMENT/PLAN: 88-year-old male with htn,dm,stroke,ckd,afib,hl here w/CAMPBELL/orthopnea,cough,ble edema, found to have congestive heart failure exacerbation and bronchitis. 1. Acute diastolic congestive heart failure. -Clinically improving. -status post IV diuretics. -cont. beta-blockers 2. Acute bronchitis -Improving -cont ceftriaxone/Zithromax 3. Acute kidney injury on chronic kidney disease -Renal function stabilized. Follow-up nephrology recommendations. -Avoid nephrotoxins -Careful DM meds to avoid further progression of ckd 4. Essential hypertension -Stable. Continue antihypertensives 5. Type 2 diabetes -Hold metformin/glipizide in light of CKD. - cont with Lantus/sliding scale insulin. -Diabetic education. In light of renal insufficiency, he would most likely need to be on insulin= defer outpatient management to Dr. Centeno who will see patient tomorrow. 6. Chronic atrial fibrillation -on Aggrenox 8. Hyperlipidemia -on statin 9. History of strokes -Continue anticoagulation 10. Anemia of CKD -Stable H&H. Continue to monitor 11. Bilateral lower extremity venous insufficiency. -stable -us to r/o dvt DVT prophylaxis: Patient on Aggrenox. PUD prophylaxis: PPI CODE STATUS: Full code Carbohydrate controlled/low-cholesterol diet. Disposition: Continue current management. Repeat renal function in a.m. DC planning tomorrow with appropriate diabetic agents and outpatient cardiology/nephrology follow-up. Patient was seen in collaboration with Dr. Fernandez. Result Diagram: 12/29/18 0742 12/29/18 0742 Results 24hrs Laboratory Tests Test 12/28/18 11:40 12/28/18 17:13 12/28/18 21:25 12/29/18 07:42 Bedside Glucose 260 H 158 140 White Blood Count 12.6 H Red Blood Count 4.33 L Hemoglobin 12.7 L Hematocrit 39.5 L Mean Corpuscular 91.2 Volume Mean Corpuscular 29.3 Hemoglobin Mean Corpuscular 32.2 Hemoglobin Concent Red Cell 13.5 Distribution Width Platelet Count 234 Mean Platelet Volume 10.9 H Immature 1.000 H Granulocytes % Neutrophils % 67.2 Lymphocytes % 21.0 Monocytes % 8.7 Eosinophils % 1.5 Basophils % 0.6 Nucleated Red Blood 0.0 Cells % Immature 0.120 H Granulocytes # Neutrophils # 8.5 H Lymphocytes # 2.6 Monocytes # 1.1 H Eosinophils # 0.2 Basophils # 0.1 Nucleated Red Blood 0.0 Cells # Sodium Level 143 Potassium Level 3.4 L Chloride Level 99 Carbon Dioxide Level 29 Anion Gap 15 H Blood Urea Nitrogen 40 H Creatinine 1.63 H Est Glomerular Filtrat Rate mL/min Glucose Level 111 Calcium Level 9.7 Phosphorus Level 3.9 Magnesium Level 2.0 Test 12/29/18 08:13 Bedside Glucose 117 Exam/Review of Systems Exam Vitals Vital Signs Date Temp Pulse Resp B/P (MAP) Pulse Ox O2 O2 Flow FiO2 Time Delivery Rate 12/29/18 94 08:21 12/29/18 97.6 19 145/63 97 07:52 (90) 12/29/18 Nasal 3.0 07:35 Cannula 12/27/18 21 07:42 Intake and Output 12/28/18 12/28/18 12/29/18 1414:59 22:59 06:59 IntakeIntake Total 500 ml 450 ml OutputOutput Total 980 ml BalanceBalance 500 ml -530 ml Results Results 24hrs Laboratory Tests Test 12/28/18 11:40 12/28/18 17:13 12/28/18 21:25 12/29/18 07:42 Bedside Glucose 260 H 158 140 White Blood Count 12.6 H Red Blood Count 4.33 L Hemoglobin 12.7 L Hematocrit 39.5 L Mean Corpuscular 91.2 Volume Mean Corpuscular 29.3 Hemoglobin Mean Corpuscular 32.2 Hemoglobin Concent Red Cell 13.5 Distribution Width Platelet Count 234 Mean Platelet Volume 10.9 H Immature 1.000 H Granulocytes % Neutrophils % 67.2 Lymphocytes % 21.0 Monocytes % 8.7 Eosinophils % 1.5 Basophils % 0.6 Nucleated Red Blood 0.0 Cells % Immature 0.120 H Granulocytes # Neutrophils # 8.5 H Lymphocytes # 2.6 Monocytes # 1.1 H Eosinophils # 0.2 Basophils # 0.1 Nucleated Red Blood 0.0 Cells # Sodium Level 143 Potassium Level 3.4 L Chloride Level 99 Carbon Dioxide Level 29 Anion Gap 15 H Blood Urea Nitrogen 40 H Creatinine 1.63 H Est Glomerular Filtrat Rate mL/min Glucose Level 111 Calcium Level 9.7 Phosphorus Level 3.9 Magnesium Level 2.0 Test 12/29/18 08:13 Bedside Glucose 117 Medications Medication Current Medications IV Flush (NS 3 ml) 3 ml PER PROTOCOL IV ; Start 12/27/18 at 09:30 Ondansetron HCl (Zofran Inj) 4 mg Q6H PRN IV NAUSEA/VOMITING; Start 12/27/18 at 09:30 Acetaminophen (Tylenol Tab) 650 mg Q6H PRN PO .PAIN 1-3 OR TEMP; Start 12/27/18 at 09:30 Diagnostic Test (Pha) (Accu-Chek) 1 ea 02 XX Last administered on 12/28/18at 01:39; Admin Dose 1 EA; Start 12/28/18 at 02:00 Insulin Aspart (Novolog Insulin Pen) NOVOLOG *MILD* ALGORITHM WITH MEALS BEDTIME SC Last administered on 12/28/18at 17:33; Admin Dose 1 UNIT; Start 12/27/18 at 12:00 Dipyridamole/ Aspirin (Aggrenox) 1 cap DAILY PO Last administered on 12/29/18at 08:25; Admin Dose 1 CAP; Start 12/28/18 at 09:00 Finasteride (Proscar) 5 mg DAILY PO Last administered on 12/29/18 08:24; Admin Dose 5 MG; Start 12/28/18 at 09:00 Latanoprost (Xalatan) 1 drop QHS BOTH EYES Last administered on 12/28/18 21:26; Admin Dose 1 DROP; Start 12/27/18 at 21:00 Metoprolol Succinate (Toprol Xl) 50 mg DAILY PO Last administered on 12/29/18 08:24; Admin Dose 50 MG; Start 12/28/18 at 09:00 Multivitamins/ Minerals (Theragran-M) 1 tab DAILY PO Last administered on 12/29/18 08:23; Admin Dose 1 TAB; Start 12/28/18 at 09:00 Miscellaneous Information 1 ea NOTE XX ; Start 12/27/18 at 11:00 Glucose (Glutose) 15 gm Q15M PRN PO DECREASED GLUCOSE; Start 12/27/18 at 11:00 Glucose (Glutose) 22.5 gm Q15M PRN PO DECREASED GLUCOSE; Start 12/27/18 at 11:00 Dextrose (D50w Syringe) 25 ml Q15M PRN IV DECREASED GLUCOSE; Start 12/27/18 at 11:00 Dextrose (D50w Syringe) 50 ml Q15M PRN IV DECREASED GLUCOSE; Start 12/27/18 at 11:00 Glucagon (Glucagen) 1 mg Q15M PRN IM DECREASED GLUCOSE; Start 12/27/18 at 11:00 Glucose (Glutose) 15 gm Q15M PRN BUCCAL DECREASED GLUCOSE; Start 12/27/18 at 11:00 Losartan Potassium (Cozaar) 50 mg DAILY PO Last administered on 12/29/18at 08:24; Admin Dose 50 MG; Start 12/27/18 at 12:00 Ceftriaxone Sodium 50 ml @ 100 mls/hr Q24H IVPB Last administered on 12/28/18at 16:18; Admin Dose 100 MLS/HR; Start 12/27/18 at 14:00 Guaifenesin/ Dextromethorphan (Robitussin Dm Liquid Cup) 10 ml Q4H PRN PO cough Last administered on 12/28/18at 19:02; Admin Dose 10 ML; Start 12/27/18 at 14:00 Azithromycin (Zithromax) 500 mg DAILY PO Last administered on 12/29/18 08:23; Admin Dose 500 MG; Start 12/27/18 at 15:00 Atorvastatin Calcium (Lipitor) 10 mg DAILY@21 PO Last administered on 12/28/18 21:26; Admin Dose 10 MG; Start 12/27/18 at 21:00 Linagliptin (Tradjenta) 5 mg DAILY PO Last administered on 12/29/18 08:24; Admin Dose 5 MG; Start 12/28/18 at 09:00 Fish Oil (Fish Oil) 1,000 mg DAILY PO Last administered on 12/29/18 08:23; Admin Dose 1,000 MG; Start 12/28/18 at 09:00 Insulin Glargine (Lantus) 18 units DAILY@0800 SC Last administered on 12/29/18 09:25; Admin Dose 18 UNITS; Start 12/29/18 at 08:00 ANTHONY CASE NP Dec 29, 2018 11:19
--- NOTE | 2018-12-29 12:47 | CONS ---
Assessment/Plan Assessment/Plan Hospital Course (Demo Recall) Acute diastolic CHF: EF preserved and no prior known diagnosis. No clear trigger except for possible infection and BP 192/78 on admission. Improved after diuresis and ~euvolemic ?Bronchitis vs underlying CAP: productive cough, leukocytosis with left shift. On antibiotics Pulmonary HTN: PAP 69 mmHg on echo. Likely at least partially from left heart failure. Recheck as outpt Chronic afib: on aggrenox by choice (refused anticoagulation). rates controlled HTN: 192/78 on admission and likely contributing to above. 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 On admission 2.1. Now 1.7 DM HL -ok for d/c from my perspective -please d/c with lasix 20mg PO daily and KCL 10mEq daily -losartan 50mg daily -metoprolol succinate 50mg daily -simvastatin 10mg -aggrenox Consultation Date/Type/Reason Admit Date/Time Dec 27, 2018 at 09:13 Initial Consult Date 12/27/18 Type of Consult Cardiology Requesting Provider: ANTHONY CASE NP Date/Time of Note DATE: 12/29/18 TIME: 12:45 24 HR Interval Summary Free Text/Dictation Doing very well. No complaints. Feels back to normal. Exam/Review of Systems Exam Vitals Vital Signs Date Temp Pulse Resp B/P (MAP) Pulse Ox O2 O2 Flow FiO2 Time Delivery Rate 12/29/18 97.4 54 19 133/60 98 11:31 (84) 12/29/18 Nasal 3.0 07:35 Cannula 12/27/18 21 07:42 Intake and Output 12/28/18 12/28/18 12/29/18 1515:00 23:00 07:00 IntakeIntake Total 500 ml 450 ml OutputOutput Total 980 ml BalanceBalance 500 ml -530 ml Constitutional: alert, oriented Psych: no complaints Head: normocephalic, atraumatic Neck: No jvd Respiratory: crackles/rales (mild); No clear to auscultation Cardiovascular: regular rate and rhythm, edema (trace) Gastrointestinal: soft, non-tender; No distended Neurological: nl mental status, nl speech Results Result Diagram: 12/29/18 0742 12/29/18 0742 Results 24hrs Laboratory Tests Test 12/28/18 17:13 12/28/18 21:25 12/29/18 07:42 12/29/18 08:13 Bedside Glucose 158 140 117 White Blood Count 12.6 H Red Blood Count 4.33 L Hemoglobin 12.7 L Hematocrit 39.5 L Mean Corpuscular 91.2 Volume Mean Corpuscular 29.3 Hemoglobin Mean Corpuscular 32.2 Hemoglobin Concent Red Cell 13.5 Distribution Width Platelet Count 234 Mean Platelet Volume 10.9 H Immature 1.000 H Granulocytes % Neutrophils % 67.2 Lymphocytes % 21.0 Monocytes % 8.7 Eosinophils % 1.5 Basophils % 0.6 Nucleated Red Blood 0.0 Cells % Immature 0.120 H Granulocytes # Neutrophils # 8.5 H Lymphocytes # 2.6 Monocytes # 1.1 H Eosinophils # 0.2 Basophils # 0.1 Nucleated Red Blood 0.0 Cells # Sodium Level 143 Potassium Level 3.4 L Chloride Level 99 Carbon Dioxide Level 29 Anion Gap 15 H Blood Urea Nitrogen 40 H Creatinine 1.63 H Est Glomerular Filtrat Rate mL/min Glucose Level 111 Calcium Level 9.7 Phosphorus Level 3.9 Magnesium Level 2.0 Test 12/29/18 12:26 Bedside Glucose 146 Medications Medication Current Medications IV Flush (NS 3 ml) 3 ml PER PROTOCOL IV ; Start 12/27/18 at 09:30 Ondansetron HCl (Zofran Inj) 4 mg Q6H PRN IV NAUSEA/VOMITING; Start 12/27/18 at 09:30 Acetaminophen (Tylenol Tab) 650 mg Q6H PRN PO .PAIN 1-3 OR TEMP; Start 12/27/18 at 09:30 Diagnostic Test (Pha) (Accu-Chek) 1 ea 02 XX Last administered on 12/28/18at 01:39; Admin Dose 1 EA; Start 12/28/18 at 02:00 Insulin Aspart (Novolog Insulin Pen) NOVOLOG *MILD* ALGORITHM WITH MEALS BEDTIME SC Last administered on 12/28/18at 17:33; Admin Dose 1 UNIT; Start 12/27/18 at 12:00 Dipyridamole/ Aspirin (Aggrenox) 1 cap DAILY PO Last administered on 12/29/18at 08:25; Admin Dose 1 CAP; Start 12/28/18 at 09:00 Finasteride (Proscar) 5 mg DAILY PO Last administered on 12/29/18at 08:24; Admin Dose 5 MG; Start 12/28/18 at 09:00 Latanoprost (Xalatan) 1 drop QHS BOTH EYES Last administered on 12/28/18 21:26; Admin Dose 1 DROP; Start 12/27/18 at 21:00 Metoprolol Succinate (Toprol Xl) 50 mg DAILY PO Last administered on 12/29/18 08:24; Admin Dose 50 MG; Start 12/28/18 at 09:00 Multivitamins/ Minerals (Theragran-M) 1 tab DAILY PO Last administered on 12/29/18 08:23; Admin Dose 1 TAB; Start 12/28/18 at 09:00 Miscellaneous Information 1 ea NOTE XX ; Start 12/27/18 at 11:00 Glucose (Glutose) 15 gm Q15M PRN PO DECREASED GLUCOSE; Start 12/27/18 at 11:00 Glucose (Glutose) 22.5 gm Q15M PRN PO DECREASED GLUCOSE; Start 12/27/18 at 11:00 Dextrose (D50w Syringe) 25 ml Q15M PRN IV DECREASED GLUCOSE; Start 12/27/18 at 11:00 Dextrose (D50w Syringe) 50 ml Q15M PRN IV DECREASED GLUCOSE; Start 12/27/18 at 11:00 Glucagon (Glucagen) 1 mg Q15M PRN IM DECREASED GLUCOSE; Start 12/27/18 at 11:00 Glucose (Glutose) 15 gm Q15M PRN BUCCAL DECREASED GLUCOSE; Start 12/27/18 at 11:00 Losartan Potassium (Cozaar) 50 mg DAILY PO Last administered on 12/29/18 08:24; Admin Dose 50 MG; Start 12/27/18 at 12:00 Ceftriaxone Sodium 50 ml @ 100 mls/hr Q24H IVPB Last administered on 12/28/18 16:18; Admin Dose 100 MLS/HR; Start 12/27/18 at 14:00 Guaifenesin/ Dextromethorphan (Robitussin Dm Liquid Cup) 10 ml Q4H PRN PO cough Last administered on 12/28/18 19:02; Admin Dose 10 ML; Start 12/27/18 at 14:00 Azithromycin (Zithromax) 500 mg DAILY PO Last administered on 12/29/18 08:23; Admin Dose 500 MG; Start 12/27/18 at 15:00 Atorvastatin Calcium (Lipitor) 10 mg DAILY@21 PO Last administered on 12/28/18 21:26; Admin Dose 10 MG; Start 12/27/18 at 21:00 Linagliptin (Tradjenta) 5 mg DAILY PO Last administered on 12/29/18 08:24; Admin Dose 5 MG; Start 12/28/18 at 09:00 Fish Oil (Fish Oil) 1,000 mg DAILY PO Last administered on 12/29/18 08:23; Admin Dose 1,000 MG; Start 12/28/18 at 09:00 Insulin Glargine (Lantus) 18 units DAILY@0800 SC Last administered on 12/29/18 09:25; Admin Dose 18 UNITS; Start 12/29/18 at 08:00 EMILIANO WATKINS Dec 29, 2018 12:47
[2018-12-29] MEDS ORDERED: POTASSIUM CHLORIDE 20 MEQ POWDER FOR ORAL SOLN PO ONE (13:00)
[2018-12-29] MEDS: CEFTRIAXONE 1 GM/50 ML (PMX) 50 ML IVPB SCH (13:19)
[2018-12-29] MEDS: FUROSEMIDE 20 MG TAB PO SCH (13:20)
[2018-12-29] MEDS: ATORVASTATIN 10 MG TAB PO SCH (20:16)
[2018-12-29] MEDS: GUAIFENESIN/DM 5ML CUP PO PRN (20:16)
[2018-12-29] MEDS: LATANOPROST 0.005% 2.5 ML OPH BOTH EYES SCH (21:15)
[2018-12-30] VITALS (8 sets, daily range): BP systolic 126–197; BP diastolic 59–84; PULSE 50–104; RESP 19–22
[2018-12-30] MEDS: ACCU-CHEK XX SCH (02:00)
[2018-12-30] MEDS: INSULIN ASPART [NOVOLOG] 3 ML PEN SC SCH ×2 (07:55→11:50)
[2018-12-30] MEDS: INSULIN GLARGINE [LANTus] (100 UNITS/ML) SYG SC SCH (08:14)
[2018-12-30] MEDS: MULTIVITAMINS/MINERALS TAB PO SCH (08:21)
[2018-12-30] MEDS: FISH OIL 1,000 MG CAP PO SCH (08:21)
[2018-12-30] MEDS: FINASTERIDE 5 MG TAB PO SCH (08:21)
[2018-12-30] MEDS: AZITHROMYCIN 500 MG TAB PO SCH (08:22)
[2018-12-30] MEDS: LINAGLIPTIN 5 MG TABLET PO SCH (08:22)
[2018-12-30] MEDS: LOSARTAN 50 MG TAB PO SCH (08:23)
[2018-12-30] MEDS: METOPROLOL (XL) 50 MG TAB PO SCH (08:23)
[2018-12-30] MEDS: FUROSEMIDE 20 MG TAB PO SCH (08:24)
[2018-12-30] MEDS: DIPYRIDAMOLE/ASPIRIN (SR) CAP PO SCH (08:24)
--- NOTE | 2018-12-30 08:33 | PN ---
Date/Time of Note Date/Time of Note DATE: 12/30/18 TIME: 08:32 Assessment/Plan VTE Prophylaxis Risk score (from Ns)>0 risk: 6 SCD applied (from Ns): No SCD contraindicated: other Pharmacological prophylaxis: other Lines/Catheters IV C[facility] Type [facility]from [facility] [place] [facility] Urinary Cath still in place: No Assessment/Plan Hospital Course renal follow up SUBJECTIVE: The patient is clinically improving. No acute events overnight. No fevers, chills, nausea, vomiting. d/w Dr Juárez OBJECTIVE: HEENT: Head is normocephalic. NECK: Supple. HEART: Regular rate. LUNGS: Show diminished breath sounds at the base. ABDOMEN: Soft, nontender to palpation without rebound or guarding. EXTREMITIES: Negative for clubbing, cyanosis, no edema. DERMATOLOGIC: No rashes. MUSCULOSKELETAL: No joint effusion. NEUROLOGIC: No change in exam. MEDICATIONS: The patient's medications have been reviewed. ASSESSMENT AND PLAN: 1. Nonoliguric acute kidney injury on top of chronic kidney disease stage IIIb with previous baseline creatinine of 1.5 mg/dL. Etiology of acute kidney injury is secondary to hemodynamics, possible cardiorenal syndrome. The patient's re nal function has improved initially with diuretic therapy. At this point, continue current treatment plans, supportive care, renally dose all medicines and follow up renal panel. The patient appears near euvolemic status and monitor closely. 2. Acute decompensated heart failure. The patient is clinically improving. Continue medical management. Diuretics is being adjusted by Cardiology. 3. Anemia. Monitor hemoglobin and hematocrit levels. 4. Mineral bone disorder. Monitor calcium and phosphorus levels. 5. Systemic inflammatory response syndrome possible bronchitis. Continue current antibiotic regimen. 6. Chronic kidney disease, etiology is secondary to diabetes, hypertension. Th e patient is currently in acute kidney injury as stated above. Continue medical management. Continue disease factor modification. 7. Hypertension. Continue current blood pressure regimen. 8. Diabetes. Continue current insulin regimen. 9. Dyslipidemia. Continue statin therapy. 10. History of cerebrovascular accident. Continue medical management. Result Diagram: 12/29/18 0742 12/30/18 0550 Results 24hrs Laboratory Tests Test 12/29/18 12:26 12/29/18 17:00 12/29/18 20:23 12/30/18 02:18 Bedside Glucose 146 123 204 172 Test 12/30/18 05:50 12/30/18 07:56 Sodium Level 138 Potassium Level 4.0 Chloride Level 100 Carbon Dioxide Level 26 Anion Gap 12 Blood Urea Nitrogen 39 H Creatinine 1.48 H Est Glomerular Filtrat Rate mL/min Glucose Level 133 Calcium Level 9.3 Bedside Glucose 139 Exam/Review of Systems Exam Vitals Vital Signs Date Temp Pulse Resp B/P (MAP) Pulse Ox O2 O2 Flow FiO2 Time Delivery Rate 12/30/18 97.7 87 20 143/71 98 07:15 (95) 12/30/18 2.0 02:33 12/29/18 Nasal 20:00 Cannula 12/27/18 07:42 Intake and Output 12/29/18 12/29/18 12/30/18 1515:00 23:00 07:00 IntakeIntake Total 475 ml 300 ml OutputOutput Total 1200 ml BalanceBalance 475 ml -900 ml Results Results 24hrs Laboratory Tests Test 12/29/18 12:26 12/29/18 17:00 12/29/18 20:23 12/30/18 02:18 Bedside Glucose 146 123 204 172 Test 12/30/18 05:50 12/30/18 07:56 Sodium Level 138 Potassium Level 4.0 Chloride Level 100 Carbon Dioxide Level 26 Anion Gap 12 Blood Urea Nitrogen 39 H Creatinine 1.48 H Est Glomerular Filtrat Rate mL/min Glucose Level 133 Calcium Level 9.3 Bedside Glucose 139 Medications Medication Current Medications IV Flush (NS 3 ml) 3 ml PER PROTOCOL IV ; Start 12/27/18 at 09:30 Ondansetron HCl (Zofran Inj) 4 mg Q6H PRN IV NAUSEA/VOMITING; Start 12/27/18 at 09:30 Acetaminophen (Tylenol Tab) 650 mg Q6H PRN PO .PAIN 1-3 OR TEMP; Start 12/27/18 at 09:30 Diagnostic Test (Pha) (Accu-Chek) 1 ea 02 XX Last administered on 12/30/18at 02:00; Admin Dose 1 EA; Start 12/28/18 at 02:00 Insulin Aspart (Novolog Insulin Pen) NOVOLOG *MILD* ALGORITHM WITH MEALS BEDTIME SC Last administered on 12/29/18at 21:05; Admin Dose 1 UNIT; Start 12/27/18 at 12:00 Dipyridamole/ Aspirin (Aggrenox) 1 cap DAILY PO Last administered on 12/30/18 08:24; Admin Dose 1 CAP; Start 12/28/18 at 09:00 Finasteride (Proscar) 5 mg DAILY PO Last administered on 12/30/18 08:21; Admin Dose 5 MG; Start 12/28/18 at 09:00 Latanoprost (Xalatan) 1 drop QHS BOTH EYES Last administered on 12/29/18 21:15; Admin Dose 1 DROP; Start 12/27/18 at 21:00 Metoprolol Succinate (Toprol Xl) 50 mg DAILY PO Last administered on 12/30/18 08:23; Admin Dose 50 MG; Start 12/28/18 at 09:00 Multivitamins/ Minerals (Theragran-M) 1 tab DAILY PO Last administered on 12/30/18 08:21; Admin Dose 1 TAB; Start 12/28/18 at 09:00 Miscellaneous Information 1 ea NOTE XX ; Start 12/27/18 at 11:00 Glucose (Glutose) 15 gm Q15M PRN PO DECREASED GLUCOSE; Start 12/27/18 at 11:00 Glucose (Glutose) 22.5 gm Q15M PRN PO DECREASED GLUCOSE; Start 12/27/18 at 11:00 Dextrose (D50w Syringe) 25 ml Q15M PRN IV DECREASED GLUCOSE; Start 12/27/18 at 11:00 Dextrose (D50w Syringe) 50 ml Q15M PRN IV DECREASED GLUCOSE; Start 12/27/18 at 11:00 Glucagon (Glucagen) 1 mg Q15M PRN IM DECREASED GLUCOSE; Start 12/27/18 at 11:00 Glucose (Glutose) 15 gm Q15M PRN BUCCAL DECREASED GLUCOSE; Start 12/27/18 at 11:00 Losartan Potassium (Cozaar) 50 mg DAILY PO Last administered on 12/30/18 08 :23; Admin Dose 50 MG; Start 12/27/18 at 12:00 Ceftriaxone Sodium 50 ml @ 100 mls/hr Q24H IVPB Last administered on 12/29/18 13:19; Admin Dose 100 MLS/HR; Start 12/27/18 at 14:00 Guaifenesin/ Dextromethorphan (Robitussin Dm Liquid Cup) 10 ml Q4H PRN PO cough Last administered on 12/29/18 20:16; Admin Dose 10 ML; Start 12/27/18 at 14:00 Azithromycin (Zithromax) 500 mg DAILY PO Last administered on 12/30/18 08:22; Admin Dose 500 MG; Start 12/27/18 at 15:00 Atorvastatin Calcium (Lipitor) 10 mg DAILY@21 PO Last administered on 12/29/18 20:16; Admin Dose 10 MG; Start 12/27/18 at 21:00 Linagliptin (Tradjenta) 5 mg DAILY PO Last administered on 12/30/18 08:22; Admin Dose 5 MG; Start 12/28/18 at 09:00 Fish Oil (Fish Oil) 1,000 mg DAILY PO Last administered on 12/30/18 08:21; Admin Dose 1,000 MG; Start 12/28/18 at 09:00 Insulin Glargine (Lantus) 18 units DAILY@0800 SC Last administered on 12/30/18 08:14; Admin Dose 18 UNITS; Start 12/29/18 at 08:00 Furosemide (Lasix) 20 mg DAILY PO Last administered on 12/30/18 08:24; Admin Dose 20 MG; Start 12/29/18 at 13:00 TAMIKO TEJEDA DO Dec 30, 2018 08:33
--- NOTE | 2018-12-30 11:28 | PDOCDIS ---
Discharge Instructions DIAGNOSIS Discharge Diagnosis Acute tracheobronchitis; acute CHF; acute kidney injury on chronic kidney disease stage II to stage III; diabetes mellitus type 2; mixed hyperlipidemia; glaucoma; essential hypertension; tonic atrial fibrillation; pulmonary hypertension; anemia CONDITION [id number] Patient Condition: [id number] Fair HOME CARE INSTRUCTIONS: [id number] Diet Instructions: [id number] Reduced Sodium ACTIVITY: [id number] Activity Restrictions: [id number] Slowly Increase Activity FOLLOW UP/APPOINTMENTS Follow-up Plan Cardiology in 1 week; primary care physician in 2 weeks ANANYA CAMACHO MD Dec 30, 2018 11:28
--- NOTE | 2018-12-30 11:28 | DS ---
Date/Time of Note Date/Time of Note DATE: 12/30/18 TIME: 11:22 Discharge Summary Admission/Discharge Info Admit Date/Time Dec 27, 2018 at 09:13 Discharge Date/Time December 30, 2018 Discharge Diagnosis Acute tracheobronchitis; acute CHF; acute kidney injury on chronic kidney disease stage II to stage III; diabetes mellitus type 2; mixed hyperlipidemia; glaucoma; essential hypertension; tonic atrial fibrillation; pulmonary hypertension; anemia Patient Condition: Fair Consults Cardiology-Dr. Watkins; nephrology-Dr. Petty Procedures Echocardiogram; renal ultrasound; extremity venous study Hx of Present Illness Hx of Present Illness 88-year-old male with a history of hypertension, atrial fibrillation, bilateral lower extremity venous insufficiency, CKD, type 2 diabetes, hyperlipidemia, strokes, brought into the emergency room with worsening bilateral lower extremity swelling, dyspnea on exertion, productive cough, wheezing, and generalized malaise times 5 days duration. Patient symptoms got worse last night with orthopnea. Patient denied chest pain, palpitation, nausea, vomiting, diaphoresis, loss of consciousness, dizziness, numbness, tingling, speech difficulties, vision changes or other constitutional symptoms. In the emergency room, patient was noted with elevated white count 12,300, blood glucose 191, BUN 47, and creatinine 2.11. Patient also had elevated BNP 6800. Patient had a negative urine analysis. Patient's chest x-ray showed pulmonary edema/bibasilar atelectasis, cardiomegaly/atherosclerosis. In ER, patient was given 20 mg IV Lasix. Hospital Course [facility] 88-year-old gentleman admitted with heart failure and bronchitis. He was treated with diuresis, adjustment of medications and control of tachycardia. Please note the course of his workup he was found to have markedly elevated pulmonary artery pressures and may very well have pulmonary hypertension. Cardiology recommends outpatient reevaluation to follow this up after he is stabilized. At this time he is improved markedly and is in a stable condition for discharge. Please note he has capacity for self decision making Home Meds Reported Medications Cranberry Fruit Concentrate (CRANBERRY) 450 Mg Capsule, 450 MG PO DAILY, CAP 12/27/18 [place]-3/Dha/Epa/Fish Oil (FISH OIL 1,000 MG SOFTGEL) 1 Each Capsule, 1 CAP PO DAILY, CAP 12/27/18 Multivits,Ca,Minerals/Iron/FA (Thera M Plus Tablet) 1 Each Tablet, 1 TAB PO DAILY, TAB 12/27/18 Dextran 70/Hypromellose/Pf (Genteal Tears 0.1%-0.3% Drop) 1 Each Droperette, 1 EACH OP BID 12/27/18 Aspirin/Dipyridamole (Aspirin-Dipyridam ER 25-200 mg) 1 Each Cpmp.12hr, 1 CAP ORAL DAILY 12/27/18 Finasteride* (Finasteride*) 5 Mg Tablet, 5 MG PO DAILY, TAB 12/27/18 Metformin Hcl* (Metformin Hcl* ER) 500 Mg Tab.sr.24h, 500 MG PO DAILY, #30 TAB 12/27/18 Losartan Potassium* (Losartan Potassium*) 50 Mg Tablet, 50 MG PO DAILY, TAB 12/27/18 Metoprolol Succinate* (Toprol XL*) 50 Mg Tab.er.24h, 50 MG PO DAILY, #30 TAB 12/27/18 Sitagliptin* (Januvia*) 100 Mg Tablet, 100 MG PO DAILY, #30 TAB 12/27/18 Latanoprost (Latanoprost) 2.5 Ml Drops, 1 DROP BOTH EYES QHS, #1 BOTTLE 12/27/18 Simvastatin* (Zocor*) 10 Mg Tablet, 10 MG PO QHS, #30 TAB 12/27/18 Glipizide* (Glipizide*) 10 Mg Tablet, 10 MG PO AC BREAKFAST, TAB 12/27/18 Follow-up Plan Cardiology in 1 week; primary care physician in 2 weeks Primary Care Provider Not On Staff Doctor Time spent on discharge: > 30 minutes Pending Labs Laboratory Tests Test 12/29/18 12:26 12/29/18 17:00 12/29/18 20:23 12/30/18 02:18 Bedside 146 123 204 172 Glucose mg/dL (70-220) mg/dL (70-220) mg/dL (70-220) mg/dL (70-220) Test 12/30/18 05:50 12/30/18 07:56 Sodium Level 138 mmol/L (135-144 ) Potassium 4.0 Level mmol/L (3.5-5.1 ) Chloride Level 100 mmol/L (97-110) Carbon Dioxide 26 Level mmol/L (21-31) Anion Gap 12 (5-13) Blood Urea 39 mg/dl (7-20) Nitrogen Creatinine 1.48 mg/dl (0.61-1.2 4) Est Glomerular mL/min (>60) Filtrat Rate mL/min Glucose Level 133 mg/dl (70-220) Calcium Level 9.3 mg/dl (8.4-10.2 ) Bedside 139 Glucose mg/dL (70-220) Copies To: CC: EMILIANO WATKINS; LUIZ PETTY DO ; ANANYA CAMACHO MD Dec 30, 2018 11:28
[2018-12-30] MEDS ORDERED: OMEG100024 PO (11:31)
[2018-12-30] MEDS ORDERED: CEPH500C PO (11:31)
[2018-12-30] MEDS ORDERED: TAMS0.4C2 PO (11:31)
[2018-12-30] MEDS ORDERED: FISH OIL 1,000 MG CAP PO SCH (21:00)
[2018-12-30] MEDS ORDERED: TAMSULOSIN (SR) 0.4 MG CAP PO SCH (21:00)
== END 2018-12-30 13:49 | disposition home or self-care (01) | DRG 291 ==
LOC: E/R 07:12 → TEL 09:13
PROVIDERS: ADMIT Internal Medicine; ATTEND Internal Medicine
DX: I13.0 Hypertensive heart and chronic kidney disease with heart failure and stage 1 through stage 4 chronic kidney disease, or unspecified chronic kidney disease (principal); I50.33 Acute on chronic diastolic (congestive) heart failure; R65.10 Systemic inflammatory response syndrome (SIRS) of non-infectious origin without acute organ dysfunction; N17.9 Acute kidney failure, unspecified; J20.9 Acute bronchitis, unspecified; N18.3 Chronic kidney disease, stage 3 (moderate); E11.22 Type 2 diabetes mellitus with diabetic chronic kidney disease; I48.2 Chronic atrial fibrillation; E78.5 Hyperlipidemia, unspecified; D63.1 Anemia in chronic kidney disease; I27.20 Pulmonary hypertension, unspecified; Z79.84 Long term (current) use of oral hypoglycemic drugs; Z79.82 Long term (current) use of aspirin; Z86.73 Personal history of transient ischemic attack (TIA), and cerebral infarction without residual deficits; E78.2 Mixed hyperlipidemia; H40.9 Unspecified glaucoma
CPT/HCPCS: 36415; 71045; 76775; 80048; 80053; 80061; 81001; 81003; 82043; 82962; 83036; 83605; 83735; 83880; 84100; 84155; 84300; 84443; 84484; 85025; 87040; 87400; 93005; 93306; 93970; 94664; J0696; J1815; J1940